=== PATIENT | female | born 1965 | race Caucasian/White ===

== ENCOUNTER 2016-08-20 23:15 | Emergency (ER) | payer BC ==
[2016-08-20 23:55] VITALS: BP 132/111
[2016-08-21 00:21] LABS: Urine Bacteria Absent (Absent)
--- NOTE | 2016-08-21 00:58 | ED ---
Hilton Artis Billy, scribed for Thai Weeks MD on 08/21/16 at 0012 . GI/ HPI - HPI Summary HPI Summary: Patient is a 51 year-old female coming to [facility] for evaluation of burning and stabbing pain in the "vaginal area" for the last 3 days. She has a history of UTI. Pain is worse with urination. Positive fevers and chills. She took OTC AZO without improvement. - History of Current Complaint Chief Complaint: EDUrogenitalProblems Time Seen by Provider: 08/20/16 23:31 Stated Complaint: POSS UTI Hx Obtained From: Patient Onset/Duration: Started Days Ago Timing: Constant Severity: Moderate Current Severity: Moderate Pain Intensity: 9 Additional Location for Females: Vulva Pain Characteristics: Sharp Associated Signs and Symptoms: Positive: Fever, Dysuria, Other: - chills Aggravating Factor(s): Urination Alleviating Factor(s): Nothing - Additional Pertinent History Primary Care Physician: DEVI - Allergy/Home Medications Allergies/Adverse Reactions: Allergies Allergy/AdvReac Type Severity Reaction Status Date / Time Penicillins Allergy Severe Rash Verified 08/20/16 23:53 Aspirin AdvReac Severe Vomiting Verified 08/20/16 23:53 Meperidine [From Demerol HCl] AdvReac Severe Nausea And Verified 08/20/16 23:53 Vomiting Morphine AdvReac Severe Vomiting Verified 08/20/16 23:53 lorbid Allergy Rash Uncoded 08/20/16 23:53 PMH/Surg Hx/FS Hx/Imm Hx Endocrine/Hematology History: Reports: Hx Diabetes Denies: Hx Anticoagulant Therapy, Hx Blood Disorders Cardiovascular History: Reports: Hx Congestive Heart Failure, Hx Hypertension, Other Cardiovascular Problems/Disorders - CHF Dx in 2011-current stable; ectopic atrial tachycardia 2013 - ablation GI History: Reports: Hx Irritable Bowel, Other GI Disorders - IBS - diarrhea Psychiatric History: Reports: Hx Anxiety - Surgical History Surgery Procedure, Year, and Place: cholecystectomy Infectious Disease History: No Infectious Disease History: Denies: Hx Clostridium Difficile, Hx Hepatitis, Hx Human Immunodeficiency Virus (HIV), Hx of Known/Suspected MRSA, Hx Shingles, Hx Tuberculosis, Hx Known/ Suspected VRE, Hx Known/Suspected VRSA, History Other Infectious Disease, Traveled Outside the [place] in Last 30 Days - Family History Known Family History: Positive: Hypertension, Diabetes, Renal Disease, Other - cancer; thyroid dz - Social History Alcohol Use: None Substance Use Type: Reports: None Smoking Status (MU): Never Smoked Tobacco Review of Systems Positive: Fever, Chills Positive: dysuria All Other Systems Reviewed And Are Negative: Yes Physical Exam Triage Information Reviewed: Yes Vital Signs On Initial Exam: Initial Vitals Temp Pulse Resp BP Pulse Ox 98.6 F 95 16 132/111 95 08/20/16 23:49 08/20/16 23:49 08/20/16 23:49 08/20/16 23:49 08/20/16 23:49 Vital Signs Reviewed: Yes Appearance: Positive: No Pain Distress, Obese Skin: Positive: Warm Head/Face: Positive: Normal Head/Face Inspection Eyes: Positive: ARISTEO ENT: Positive: Hearing grossly normal Neck: Positive: Supple Respiratory/Lung Sounds: Positive: Breath Sounds Present Cardiovascular: Positive: RRR Abdomen Description: Positive: Nontender, No Organomegaly, Soft Bowel Sounds: Positive: Present Pelvic Exam: Positive: speculum exam normal, no masses, discharge - mild white. Negative: blood, tender adnexa Musculoskeletal: Positive: Strength/ROM Intact Neurological: Positive: Alert, Oriented to Person Place, Time - Jayce Coma Scale Coma Scale Total: 15 Diagnostics - Vital Signs Vital Signs Temp Pulse Resp BP Pulse Ox 08/20/16 23:49 98.6 F 95 16 132/111 95 - Laboratory Lab Results: Lab Results 08/20/16 Range/Units 23:55 Urine Color [facility] Urine Appearance Clear Urine pH Pending Ur Specific [place] 1.035 H (1.010-1.030) Urine Protein Pending Urine Ketones Pending Urine Blood Pending Urine Nitrate Pending Urine Bilirubin Pending Urine Urobilinogen Pending Ur Leukocyte Esterase Pending Urine Glucose Pending Urine Ascorbic Acid Pending Lab Statement: Any lab studies that have been ordered have been reviewed, and results considered in the medical decision making process. GIGU Course/Dx - Diagnoses Provider Diagnoses: Vaginitis Discharge - Discharge Plan Condition: Stable Disposition: HOME Prescriptions: Miconazole VAG.SUPP* [Monistat7*] 100 mg VAGINAL BEDTIME #7 vag.supp Patient Education Materials: Vaginitis (ED) Referrals: Konstantin Gilmore MD [Primary Care Provider] - Additional Instructions: TAKE MEDICATIONS DIRECTED. FOLLOW UP WITH YOUR VIDEO ENGINEER. The documentation as recorded by the Hilton morganKraig accurately reflects the service I personally performed and the decisions made by me, Thai Weeks MD.
== END 2016-08-21 01:05 | disposition home or self-care (01) ==
LOC: ED 23:15
DX: N76.0 Acute vaginitis (principal); E11.9 Type 2 diabetes mellitus without complications; Z88.0 Allergy status to penicillin; Z88.5 Allergy status to narcotic agent; Z88.6 Allergy status to analgesic agent; I50.9 Heart failure, unspecified; I10 Essential (primary) hypertension
CPT/HCPCS: 81003; 81015; 87480; 87491; 87510; 87591; 87661; 99282

== ENCOUNTER 2017-01-26 08:05 | Emergency (ER) | payer BC ==
[2017-01-26] MEDS ORDERED: NS 0.9% 1000 ML* 1,000 ML IV ONE (08:09)
[2017-01-26] MEDS ORDERED: Ondansetron INJ* 2 MG/ML VIAL IV ONE (08:09)
[2017-01-26 09:04] LABS: Hematocrit 45 % (35-47); Hemoglobin 15.8 g/dl (12.0-16.0); Mean Corpuscular HGB Conc 35 g/dl (31-36); Mean Corpuscular Hemoglobin 30 pg (27-31); Mean Corpuscular Volume 86 fL (80-97); Mean Platelet Volume 9 um3 (7.4-10.4); Red Blood Count 5.26 10^6/ul (4.0-5.4); Red Cell Distribution Width 13 % (10.5-15); White Blood Count 7.1 10^3/ul (3.5-10.8)
--- NOTE | 2017-01-26 09:25 | RAD ---
Indication: Diarrhea and vomiting for 2 days. Comparison: December 17, 2015 chest radiograph. October 25, 2006 CT abdomen. Technique: Supine and upright views of the abdomen. Report: Mild elevation of the RIGHT hemidiaphragm without change. No radiographic evidence for free air. Unremarkable bowel gas pattern. Small volume of stool in the colon without significant rectal distension. Negative for suspicious calcifications. Pelvic phleboliths noted. Unremarkable soft tissue contours. IMPRESSION: No acute abdominal pelvic pathology evident.
[2017-01-26 09:29] LABS: Albumin 4.4 g/dL (3.2-5.2); BUN/Creatinine Ratio 19.8 (8-20); C Reactive Protein 13.36 mg/L (< 5.00); Calcium 9.5 mg/dL (8.6-10.3); EGFR African American 89.1 (>60); EGFR Non-African American 69.3 (>60); Globulin 3.2 g/dL (2-4); Magnesium 1.6 mg/dL (1.9-2.7); Potassium 3.7 mmol/L (3.5-5.0); Total Bilirubin 0.7 mg/dL (0.2-1.0); Total Protein 7.6 g/dL (6.4-8.9)
[2017-01-26 11:58] VITALS: BP 91/63
--- NOTE | 2017-01-26 17:23 | ED ---
Jani Artis Angela, scribed for Chandra Parmar MD on 01/26/17 at 0823 . Complex/Multi-Sys Presentation - HPI Summary HPI Summary: This pt is a 51 y/o female presenting [facility] c/o diarrhea and vomiting since yesterday. She also c/o some abd cramping. She denies recent antibiotics or recent long travel. 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 Pt notes she has irritable bowel but this is something that she is not used to. She denies chest pain, SOB, fever, chills, LE swelling or pain. PMHx: CHF, tachycardia, diabetes. - History Of Current Complaint Chief Complaint: EDNauseaVomitDiarrh Hx Obtained From: Patient Onset/Duration: Lasting Days - 2, Still Present Timing: Days - 2 Severity Currently: Mild Severity Initially: Mild Location: Pain At: - abd cramping Associated Signs And Symptoms: Positive: Nausea, Vomiting, Diarrhea, Other - abdominal cramping. Negative: SOB, Chest Pain, Edema, Back Pain, Fever - Allergies/Home Medications Allergies/Adverse Reactions: Allergies Allergy/AdvReac Type Severity Reaction Status Date / Time Penicillins Allergy Severe Rash Verified 08/20/16 23:53 Aspirin AdvReac Severe Vomiting Verified 08/20/16 23:53 Meperidine [From Demerol HCl] AdvReac Severe Nausea And Verified 08/20/16 23:53 Vomiting Morphine AdvReac Severe Vomiting Verified 08/20/16 23:53 lorbid Allergy Rash Uncoded 08/20/16 23:53 PMH/Surg Hx/FS Hx/Imm Hx Endocrine/Hematology History: Reports: Hx Diabetes Denies: Hx Anticoagulant Therapy, Hx Blood Disorders Cardiovascular History: Reports: Hx Congestive Heart Failure, Hx Hypertension, Other Cardiovascular Problems/Disorders - CHF Dx in 2011-current stable; ectopic atrial tachycardia 2013 - ablation GI History: Reports: Hx Irritable Bowel, Other GI Disorders - IBS - diarrhea Psychiatric History: Reports: Hx Anxiety - Surgical History Surgery Procedure, Year, and Place: cholecystectomy Infectious Disease History: No Infectious Disease History: Denies: Hx Clostridium Difficile, Hx Hepatitis, Hx Human Immunodeficiency Virus (HIV), Hx of Known/Suspected MRSA, Hx Shingles, Hx Tuberculosis, Hx Known/ Suspected VRE, Hx Known/Suspected VRSA, History Other Infectious Disease, Traveled Outside the [place] in Last 30 Days - Family History Known Family History: Positive: Hypertension, Diabetes, Renal Disease, Other - cancer; thyroid dz - Social History Alcohol Use: None Substance Use Type: Reports: None Smoking Status (MU): Never Smoked Tobacco Review of Systems Negative: Fever, Chills Eyes: Negative ENT: Negative Negative: Chest Pain Negative: Shortness Of Breath Positive: Vomiting, Diarrhea, Nausea, Other - abd cramping Genitourinary: Negative Musculoskeletal: Negative Negative: Edema, Other - LE pain All Other Systems Reviewed And Are Negative: Yes Physical Exam - Summary Physical Exam Summary: VITAL SIGNS: Reviewed. GENERAL: Patient is a well-developed and nourished female who is lying comfortable in the stretcher. Patient is not in any acute respiratory distress. HEAD AND FACE: No signs of trauma. No ecchymosis, hematomas or skull depressions. No sinus tenderness. EYES: PERRLA, EOMI x 2, No injected conjunctiva, no nystagmus. EARS: Hearing grossly intact. Ear canals and tympanic membranes are within normal limits. MOUTH: Oropharynx within normal limits. NECK: Supple, trachea is midline, no adenopathy, no JVD, no carotid bruit, no c- spine tenderness, neck with full ROM. CHEST: Symmetric, no tenderness at palpation LUNGS: Clear to auscultation bilaterally. No wheezing or crackles. CVS: Regular rate and rhythm, S1 and S2 present, no murmurs or gallops appreciated. ABDOMEN: Soft, non-tender. No signs of distention. No rebound no guarding, and no masses palpated. Bowel sounds are normal. EXTREMITIES: FROM in all major joints, no edema, no cyanosis or clubbing. NEURO: Alert and oriented x 3. No acute neurological deficits. Speech is normal and follows commands. SKIN: Dry and warm Triage Information Reviewed: Yes Vital Signs On Initial Exam: Initial Vitals Temp Pulse Resp BP Pulse Ox 97.5 F 100 17 122/84 98 01/26/17 08:05 01/26/17 08:05 01/26/17 08:05 01/26/17 08:05 01/26/17 08:05 Vital Signs Reviewed: Yes Diagnostics - Vital Signs Vital Signs Temp Pulse Resp BP Pulse Ox 01/26/17 08:05 97.5 F 100 17 122/84 98 - Laboratory Lab Results: Lab Results 01/26/17 01/26/17 Range/Units 08:45 08:45 WBC 7.1 (3.5-10.8) 10^3/ul RBC 5.26 (4.0-5.4) 10^6/ul Hgb 15.8 (12.0-16.0) g/dl Hct 45 (35-47) % MCV 86 (80-97) fL MCH 30 (27-31) pg MCHC 35 (31-36) g/dl RDW 13 (10.5-15) % Plt Count 196 (150-450) 10^3/ul MPV 9 (7.4-10.4) um3 Neut % (Auto) 58.1 (38-83) % Lymph % (Auto) 29.0 (25-47) % [place] % (Auto) 10.3 H (1-9) % Eos % (Auto) 2.1 (0-6) % Baso % (Auto) 0.5 (0-2) % Absolute Neuts (auto) 4.1 (1.5-7.7) 10^3/ul Absolute Lymphs (auto) 2.1 (1.0-4.8) 10^3/ul Absolute Monos (auto) 0.7 (0-0.8) 10^3/ul Absolute Eos (auto) 0.1 (0-0.6) 10^3/ul Absolute Basos (auto) 0 (0-0.2) 10^3/ul Absolute Nucleated RBC 0.01 10^3/ul Nucleated RBC % 0.2 Sodium 133 (133-145) mmol/L Potassium 3.7 (3.5-5.0) mmol/L Chloride 99 L (101-111) mmol/L Carbon Dioxide 22 (22-32) mmol/L Anion Gap 12 H (2-11) mmol/L BUN 17 (6-24) mg/dL Creatinine 0.86 (0.51-0.95) mg/dL Est GFR ( Amer) 89.1 (>60) Est GFR (Non-Af Amer) 69.3 (>60) BUN/Creatinine Ratio 19.8 (8-20) Glucose 239 H (70-100) mg/dL Calcium 9.5 (8.6-10.3) mg/dL Magnesium 1.6 L (1.9-2.7) mg/dL Total Bilirubin 0.70 (0.2-1.0) mg/dL AST 29 (13-39) U/L ALT 41 (7-52) U/L Alkaline Phosphatase 80 (34-104) U/L C-Reactive Protein 13.36 H (< 5.00) mg/L Total Protein 7.6 (6.4-8.9) g/dL Albumin 4.4 (3.2-5.2) g/dL Globulin 3.2 (2-4) g/dL Albumin/Globulin Ratio 1.4 (1-3) Lipase 29 (11.0-82.0) U/L Result Diagrams: 01/26/17 08:45 01/26/17 08:45 Lab Statement: Any lab studies that have been ordered have been reviewed, and results considered in the medical decision making process. - Radiology Abdomen XR Xray Interpretation: No Acute Changes - IMPRESSION: No acute abdominal pelvic pathology evident. ED physician has reviewed this radiology report and agrees. Radiology Interpretation Completed By: Radiologist Laisha Multi-Symp Course/Dx Assessment/Plan: This pt is a 51 y/o female presenting to [facility] c/o diarrhea and vomiting since yesterday. She also c/o some abd cramping. She denies recent antibiotics or recent long travel. 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 Pt notes she has irritable bowel but this is something that she is not used to. She denies chest pain, SOB, fever, chills, LE swelling or pain. PMHx: CHF, tachycardia, diabetes. Test results without any significant abnormalities except for glucose of 239, CRP of 13.36. In the ED course, the pt was given IV fluids, Zofran for nausea and vomiting. At this point her symptoms have subsided. Pt is tolerating PO without nausea and vomiting. The pt was observed for a couple of hours in the ED and was not able to produce stool. Therefore, since all symptoms have improved, the pt will be discharged home with follow up from PCP. Pt is hemodynamically stable, alert and oriented x3. - Diagnoses Provider Diagnoses: Nausea vomiting and diarrhea Discharge - Discharge Plan Condition: Stable Disposition: HOME Patient Education Materials: Acute Nausea and Vomiting (ED), Acute Diarrhea (ED ) Referrals: Konstantin Gilmore MD [Primary Care Provider] - Additional Instructions: Please follow up with your primary care provider. The documentation as recorded by the Jani morgan Angela accurately reflects the service I personally performed and the decisions made by me, Chandra Parmar MD.
== END 2017-01-26 12:10 | disposition home or self-care (01) ==
LOC: ED 08:05
DX: R11.2 Nausea with vomiting, unspecified (principal); R19.7 Diarrhea, unspecified; R10.9 Unspecified abdominal pain
CPT/HCPCS: 36415; 74020; 80053; 83690; 83735; 85025; 86140; 99282; J2405

== ENCOUNTER 2017-02-06 15:30 | Emergency (ER) | payer SELFPAY ==
[2017-02-06] MEDS ORDERED: HYDROmorphone INJ* 1 MG/ML CARPUJECT SYRINGE IV ONE (15:50)
[2017-02-06] MEDS ORDERED: Ondansetron INJ* 2 MG/ML VIAL IV ONE (15:50)
[2017-02-06] MEDS ORDERED: NS 0.9% 1000 ML* 1,000 ML IV SCH (16:00)
--- NOTE | 2017-02-06 16:52 | RAD ---
HISTORY: Trauma, headache COMPARISONS: None TECHNIQUE: Multiple contiguous axial CT scans were obtained of the head without intravenous contrast. FINDINGS: HEMORRHAGE/INFARCT: There is no hemorrhage or acute infarct. MASSES/SHIFT: There is no mass or shift. EXTRA-AXIAL SPACES: There are no extra-axial fluid collections. SULCI AND VENTRICLES: The sulci and ventricles are normal in size and position for the patient's stated age. CEREBRUM: There are no focal parenchymal abnormalities. BRAINSTEM: There are no focal parenchymal abnormalities. CEREBELLUM: There are no focal parenchymal abnormalities. VESSELS: The vessels are grossly normal. PARANASAL SINUSES: The paranasal sinuses are clear. ORBITS: The orbits are unremarkable. BONES AND SOFT TISSUE: No bone or soft tissue abnormalities are noted. OTHER: None IMPRESSION: NO ACUTE INTRACRANIAL PATHOLOGY.
--- NOTE | 2017-02-06 16:53 | RAD ---
HISTORY: Trauma, right arm pain COMPARISONS: None TECHNIQUE: Multiple contiguous axial CT scans were obtained of the cervical spine without intravenous contrast, with coronal and sagittal multiplanar reformations. FINDINGS: BRAIN: The visualized brain is unremarkable CENTRAL CANAL: Evaluation of the central canal is limited on CT technique, however there is no obvious canalicular mass or epidural hemorrhage. ALIGNMENT: The alignment is normal, without subluxation or dislocation. VERTEBRAL BODIES: The odontoid process is intact. The atlantoaxial intervals are symmetric. The vertebral bodies are normal in attenuation, without fracture. There is minimal anterolateral marginal osteophyte formation. JOINTS: There is no subluxation or dislocation MUSCULATURE: Normal INTERVERTEBRAL DISCS: The intervertebral disc spaces are relatively preserved in height. AXIAL IMAGES: On axial images, there is no osseous neural foraminal narrowing or central canal stenosis. SOFT TISSUES: The visualized soft tissues of the neck are unremarkable. The prevertebral fat stripe is preserved. OTHER: None. IMPRESSION: NO ACUTE OSSEOUS INJURY TO THE CERVICAL SPINE
--- NOTE | 2017-02-06 16:54 | RAD ---
HISTORY: Fall, trauma, headache, right arm pain COMPARISONS: None TECHNIQUE: Multiple contiguous axial CT scans were obtained of the face without intravenous contrast, with coronal and sagittal multiplanar reformations. FINDINGS: BONES: There is no displaced fracture or dislocation. The orbital rim is intact. The zygomatic arch is intact. The pterygoid plates are intact. ORBITS: The globes are round. The optic nerves are symmetric. The extraocular musculature is normal. There is no post septal or intraconal inflammatory change. There is no retrobulbar hematoma. PARANASAL SINUSES: The paranasal sinuses are clear. BRAIN AND SOFT TISSUE: Unremarkable. OTHER: None. IMPRESSION: NO FACIAL FRACTURE
--- NOTE | 2017-02-06 17:15 | RAD ---
HISTORY: Left knee pain, fall COMPARISONS: None VIEWS: 4, Frontal, lateral, axial, and oblique views of the left knee FINDINGS: BONE DENSITY: Normal. BONES: There is no displaced fracture. JOINTS: There is mild tricompartmental osteoarthritis. There is no suprapatellar joint effusion or lipohemarthrosis. ALIGNMENT: There is no dislocation. SOFT TISSUES: Unremarkable. OTHER FINDINGS: None. IMPRESSION: NO ACUTE OSSEOUS INJURY. IF SYMPTOMS PERSIST, RECOMMEND REPEAT IMAGING.
--- NOTE | 2017-02-06 17:16 | RAD ---
HISTORY: Fall, right arm pain COMPARISONS: August 02, 2004 VIEWS: 4, Frontal internal rotation, external rotation, outlet, and axillary views of the right shoulder FINDINGS: BONE DENSITY: Normal. BONES: There is no displaced fracture. JOINTS: There is no arthropathy. ALIGNMENT: There is superior displacement of the clavicle with respect to the acromion with widening of the coracoclavicular interval SOFT TISSUES: Unremarkable. OTHER FINDINGS: None. IMPRESSION: FINDINGS SUGGESTIVE OF A.C. AND CORACOCLAVICULAR LIGAMENTOUS INJURY. NO ACUTE OSSEOUS INJURY.
[2017-02-06] MEDS ORDERED: oxyCODONE/Acetamin 5/325 MG* TAB PO ONE (17:36)
--- NOTE | 2017-02-06 18:10 | ED ---
Upper Extremity Pain - HPI Summary HPI Summary: 51F presents with right shoulder pain, left knee pain and headache. She tripped on her shoes and fell down a flight of stairs. no LOC. is not on blood thinners. no nausea or vomiting. has severe pain in head. has swelling to anterior shoulder with limited ROM. is not able to put much weight onto leg. pain is 10/10. no previous fracture to area. denies any previous injury to area. no lightheadedness or visual changes. - History of Current Complaint Chief Complaint: EDExtremityUpper Stated Complaint: FALL Time Seen by Provider: 02/06/17 17:09 - Allergies/Home Medications Allergies/Adverse Reactions: Allergies Allergy/AdvReac Type Severity Reaction Status Date / Time Penicillins Allergy Severe Rash Verified 08/20/16 23:53 Aspirin AdvReac Severe Vomiting Verified 08/20/16 23:53 Meperidine [From Demerol HCl] AdvReac Severe Nausea And Verified 08/20/16 23:53 Vomiting Morphine AdvReac Severe Vomiting Verified 08/20/16 23:53 lorbid Allergy Rash Uncoded 08/20/16 23:53 PMH/Surg Hx/FS Hx/Imm Hx Endocrine/Hematology History: Reports: Hx Diabetes Denies: Hx Anticoagulant Therapy, Hx Blood Disorders Cardiovascular History: Reports: Hx Congestive Heart Failure, Hx Hypertension, Other Cardiovascular Problems/Disorders - CHF Dx in 2011-current stable; ectopic atrial tachycardia 2013 - ablation GI History: Reports: Hx Irritable Bowel, Other GI Disorders - IBS - diarrhea Psychiatric History: Reports: Hx Anxiety - Surgical History Surgery Procedure, Year, and Place: cholecystectomy Infectious Disease History: No Infectious Disease History: Denies: Hx Clostridium Difficile, Hx Hepatitis, Hx Human Immunodeficiency Virus (HIV), Hx of Known/Suspected MRSA, Hx Shingles, Hx Tuberculosis, Hx Known/ Suspected VRE, Hx Known/Suspected VRSA, History Other Infectious Disease, Traveled Outside the [place] in Last 30 Days - Family History Known Family History: Positive: Hypertension, Diabetes, Renal Disease, Other - cancer; thyroid dz - Social History Alcohol Use: None Substance Use Type: Reports: None Smoking Status (MU): Never Smoked Tobacco Review of Systems Negative: Fever Negative: Chest Pain Negative: Shortness Of Breath Positive: Myalgia - left knee, right shoulder Positive: Headache All Other Systems Reviewed And Are Negative: Yes Physical Exam Triage Information Reviewed: Yes Vital Signs On Initial Exam: Initial Vitals Temp Pulse Resp BP Pulse Ox 98.4 F 82 18 141/88 99 02/06/17 15:38 02/06/17 15:38 02/06/17 15:38 02/06/17 15:38 02/06/17 15:38 Vital Signs Reviewed: Yes Appearance: Positive: Well-Appearing Skin: Positive: Warm, Dry Head/Face: Positive: Normal Head/Face Inspection, Other - no step off, raccoon eyes, bray sign Eyes: Positive: Normal, EOMI, ARISTEO, Conjunctiva Clear ENT: Positive: Normal ENT inspection, Pharynx normal, TMs normal Respiratory/Lung Sounds: Positive: Clear to Auscultation, Breath Sounds Present Cardiovascular: Positive: Normal, RRR Abdomen Description: Positive: Nontender, Soft Bowel Sounds: Positive: Present Musculoskeletal: Positive: Strength/ROM Intact - left knee with pain, Limited @ - right shoulder, Other - tenderness over right shoulder with edema there, minimially edema of left knee, good pulses, good director skills strength Neurological: Positive: Sensory/Motor Intact, Alert, Oriented to Person Place, Time, CN Intact II-III - Jayce Coma Scale Best Eye Response: 4 - Spontaneous Best Motor Response: 5 - Purposeful Movement Best Verbal Response: 5 - Oriented Coma Scale Total: 15 Diagnostics - Vital Signs Vital Signs Temp Pulse Resp BP Pulse Ox 02/06/17 17:45 18 02/06/17 16:15 18 97 02/06/17 16:00 128/67 02/06/17 15:39 84 11 100 02/06/17 15:38 98.4 F 82 18 141/88 99 02/06/17 15:37 141/88 - Laboratory Lab Statement: Any lab studies that have been ordered have been reviewed, and results considered in the medical decision making process. - Radiology shoulder Xray Interpretation: Positive (See Comments) - IMPRESSION: FINDINGS SUGGESTIVE OF A.C. AND CORACOCLAVICULAR LIGAMENTOUS INJURY. NO ACUTE OSSEOUS INJURY. Radiology Interpretation Completed By: Radiologist knee Xray Interpretation: No Acute Changes Radiology Interpretation Completed By: Radiologist - CT head, neck, maxillaryfacial CT Interpretation: No Acute Changes CT Interpretation Completed By: Radiologist Course/Dx - Course Course Of Treatment: 51F presents with right shoulder pain, left knee pain and headache. She tripped on her shoes and fell down a flight of stairs. no LOC. is not on blood thinners. no nausea or vomiting. has severe pain in head. has swelling to anterior shoulder with limited ROM. is not able to put much weight onto leg. pain is 10/10. no previous fracture to area. denies any previous injury to area. no lightheadedness or visual changes. on exam normal neuro exam. tender over anterior shoulder with. unable to move arm without extreme pain. has swelling to left anterior knee. gave dose of dilaudid and did not touch pain. CT brain normal. xray ac separation. knee left normal. discussed with dr paulson. gave sling and follow up with ortho. gave larger amount of pain medication as was unable to get pain control very well in ED. patient understand and agrees with plan. - Diagnoses Differential Diagnosis/HQI/PQRI: Positive: Fracture (Closed), Strain, Sprain Provider Diagnoses: Head injury, Separation of AC joint, Left knee pain, Fall down stairs Discharge - Discharge Plan Condition: Good Disposition: HOME Prescriptions: Ondansetron TAB* [Zofran 4 MG Tab*] 4 mg PO Q6H PRN #15 tab PRN Reason: Nausea oxyCODONE/Acetamin 5/325 MG* [Percocet 5/325 TAB*] 1 - 2 tab PO Q4H PRN #30 tab MDD 8 PRN Reason: Pain - Severe Patient Education Materials: Acromioclavicular Separation (ED), Head Injury (ED ) Referrals: Konstantin Gilmore MD [Primary Care Provider] - Abdirahman Harris MD [Medical Doctor] - Additional Instructions: Keep in sling Take Tylenol every 6 hours as needed for pain, use narcotic for break through pain Can use zofran every 6 hours for any nausea Ice/heat Follow up with ortho Return to ED if develop any new or worsening symptoms
[2017-02-06] MEDS ORDERED: HYDROmorphone INJ* 2 MG/ML CARPUJECT SYRINGE IV SLOW PU ONE (18:19)
[2017-02-06 18:54] VITALS: BP 106/61
== END 2017-02-06 18:53 | disposition home or self-care (01) ==
LOC: ED 15:30
DX: S09.90XA Unspecified injury of head, initial encounter (principal); S43.101A Unspecified dislocation of right acromioclavicular joint, initial encounter; W10.9XXA Fall (on) (from) unspecified stairs and steps, initial encounter; Y93.9 Activity, unspecified; Y92.9 Unspecified place or not applicable; M25.562 Pain in left knee; E11.9 Type 2 diabetes mellitus without complications; I50.9 Heart failure, unspecified; I10 Essential (primary) hypertension; F41.9 Anxiety disorder, unspecified; Z90.49 Acquired absence of other specified parts of digestive tract; Z88.6 Allergy status to analgesic agent; Z88.5 Allergy status to narcotic agent; Z88.0 Allergy status to penicillin
CPT/HCPCS: 70450; 70486; 72125; 96361; 96374; 96375; 96376; 99282; A9270-GY; J1170; J2405

== ENCOUNTER 2017-08-09 06:15 | Day surgery (SDC) | payer OTHER ==
--- NOTE | 2017-07-21 15:38 | HP ---
PREOPERATIVE HISTORY AND PHYSICAL: DATE OF ADMISSION/SURGERY: 08/02/17 DATE OF OFFICE VISIT: 07/21/17 ATTENDING SURGEON: Shruthi Martines MD * (DICTATED BY YAJAIRA KLINE) PROCEDURE: Left knee arthroscopy, partial meniscectomy. CHIEF COMPLAINT: Left knee. HISTORY OF PRESENT ILLNESS: Camryn is a 52-year-old female who presents to clinic for left knee pain due to a work-related injury that caused a medial meniscus tear and MCL injury. She has failed conservative measures and is therefore agreed to undergo a left knee arthroscopy, partial meniscectomy with Dr. Martines on 08/02/17. The patient also states that she has developed upper back and neck pain over the past few months that gets worse when her shoulder pain is worse. She did not have neck pain prior to the shoulder injury. It is on the right side of her spine in the muscles. She has tried heat and motion without relief. She denies numbness or tingling in the hand. PAST MEDICAL HISTORY: Hypertension, heart disease, hyperlipidemia, diabetes type 2, depression, anxiety, congestive heart failure, arrhythmia, IBS, and thyroid disorder. PAST SURGICAL HISTORY: Tubal ligation, tonsillectomy, cholecystectomy, and heart ablation x2. The patient denies prior complications with anesthesia. MEDICATIONS: 1. Vitamin D 1000 units 2 by mouth every day. 2. Methimazole 5 mg 1 by mouth every day. 3. Vitamin E 400 units 1 by mouth every day. 4. Metoprolol succinate ER 100 mg 1 by mouth every day. 5. Atorvastatin calcium 10 mg 1 by mouth every day. 6. Glimepiride 2 mg 1 by mouth every day. 7. Lisinopril 10 mg 1 by mouth every day. 8. Vitamin B12 1000 mg 1 by mouth every day. 9. Tolterodine tartrate ER 2 mg 1 by mouth every day. 10. Duloxetine HCl 60 mg 1 by mouth every day. 11. Levocetirizine dihydrochloride 5 mg 1 by mouth every day. 12. Vitamin C 1000 mg 1 by mouth daily. 13. Propranolol HCl 80 mg 1 by mouth every day. 14. Lantus 100 units per mL 15 units subcu daily as directed. 15. She is also taking Nucynta 50 mg 1 by mouth 3 times a day as needed for pain. 16. Victoza 0.6 mg at night. ALLERGIES: DEMEROL, ASPIRIN, PENICILLIN, MORPHINE. FAMILY HISTORY: Positive for diabetes, heart disease, hypertension, stroke, cancer, rheumatoid arthritis, thyroid disease, and maternal grandmother with pulmonary embolism. SOCIAL HISTORY: She denies tobacco use, alcohol use, or illegal drug use. REVIEW OF SYSTEMS: A 14-point review of systems was reviewed with the patient, positive for current complaint and neck pain, otherwise negative. Denies chest pain, shortness of breath, fever, chills, numbness, tingling, history of DVT or PE, history of bleeding disorder. PHYSICAL EXAMINATION GENERAL: A 52-year-old well-developed, well-nourished female, in no acute distress. Alert and oriented x3. Appropriate mood and affect. Appropriate balance and coordination of the upper extremities. VITAL SIGNS: Height 64, weight 191, blood pressure 114/64, respiratory rate 18 , BMI 32.8. HEENT: Normocephalic, atraumatic, PERRLA. Throat clear. NECK: Supple. There is palpation of the paraspinal muscles, nontender over the spinal processes. Stiffness to range of motion of the neck was obtained. PULMONARY: Lungs clear to auscultation bilaterally. No wheezing, rhonchi, or rales. CARDIO: Regular rate and rhythm, S1, S2. No murmurs, gallops, or rubs. No edema. ABDOMEN: Positive bowel sounds. Soft, nontender. NEUROLOGICAL: Alert and oriented x3. Cranial nerves grossly intact. Sensation intact to light touch. MUSCULOSKELETAL: Left lower extremity skin is intact. No warmth or erythema. Mild effusion, tenderness over the medial joint line. Extension 0 with pain, flexion 125. Stable with varus and valgus stress. Calves soft, nontender, +2 PT pulse, sensation intact to light touch distally. STUDIES: MRI of the left knee revealed horizontal tear of the posterior horn of the medial meniscus. IMPRESSION: Left knee medial meniscus tear. PLAN: The patient is scheduled to undergo a left knee arthroscopy with partial meniscectomy with Dr. Martines on 08/02/17. She has been cleared by her PCP and Endocrinology. Her surgery is pending cardiac clearance. She is patient of a Pain Clinic, therefore we will consult the Pain Clinic on postop pain management. In regards to her neck pain, it started after the shoulder pain and shoulder pain cannot often aggravate the neck. So, her pain in her neck and upper back is due to the Workers' Comp injury. She will follow up with Dr. Martines 2 weeks after surgery for knee followup and suture removal. YAJAIRA KLINE [id number]/[facility] #: [id number] DAREK
[~2017-08-09 06:15] MED LIST: Buffered Lidocaine 0.9% SYRIN* 5 ML/SYR SYRINGE INTRADERM ONE
[2017-08-09] MEDS ORDERED: Clindamycin 900 MG IVPREMIX(* 900 MG/50 ML SDV IV ONE (06:20)
[2017-08-09] MEDS ORDERED: Bupivacaine 0.5%* 50 ML VIAL ONE (07:06)
[2017-08-09] MEDS ORDERED: Bupivacaine 0.25% SDV* 30 ML ONE (07:08)
[2017-08-09] MEDS ORDERED: Lidocaine 1% MPF wEPI 200,000* 30 ML SDV ONE (07:08)
[2017-08-09] MEDS ORDERED: Midazolam* 1 MG/ML 5 ML VIAL (5 MG) ONE (07:24)
[2017-08-09] MEDS ORDERED: Propofol* 10 MG/ML 20 ML BTL IV PUSH ONE (07:24)
[2017-08-09] MEDS ORDERED: fentaNYL* 50 MCG/ML 2 ML VIAL (100 MCG VIAL) ONE (07:24)
[2017-08-09] MEDS ORDERED: Dexamethasone IV* 4 MG/ML 1 ML (4 MG) ONE (07:52)
[2017-08-09] MEDS ORDERED: Ondansetron INJ* 2 MG/ML VIAL ONE ×2 (08:06→08:46)
[2017-08-09] MEDS ORDERED: Ketorolac INJ* 30 MG/ML 1 ML VIAL ONE (08:06)
[2017-08-09] MEDS ORDERED: HYDROcodone/ACETAMIN 5-325 MG* 1 TAB PO PRN (08:18)
[2017-08-09] MEDS ORDERED: Ondansetron INJ* 2 MG/ML VIAL IV PRN (08:18)
[2017-08-09] MEDS ORDERED: oxyCODONE/Acetamin 5/325 MG* TAB PO PRN (08:18)
[2017-08-09] MEDS ORDERED: fentaNYL* 50 MCG/ML 2 ML VIAL (100 MCG VIAL) IV PRN (08:18)
[2017-08-09] MEDS ORDERED: Naloxone* 0.4 MG/ML 1 ML VIAL IV PRN (08:18)
[2017-08-09] MEDS ORDERED: oxyCODONE/Acetamin 5/325 MG* TAB ONE (09:50)
[2017-08-09 11:15] VITALS: BP 125/81
--- NOTE | 2017-08-10 11:18 | OP ---
DATE OF OPERATION: 08/09/17 - [facility] DATE OF : 63 SURGEON: Shruthi Martines MD [employer]: None available. ANESTHESIOLOGIST: Dr. Turner. ANESTHESIA: General. PRE-OP DIAGNOSIS: Left knee medial meniscus tear with mild osteoarthritis. POST-OP DIAGNOSIS: Left knee medial meniscus tear with mild osteoarthritis. OPERATIVE PROCEDURE: Left knee arthroscopy with partial medial and partial lateral meniscectomy. Chondroplasty of the medial femoral condyle and patellofemoral joint and synovectomy anteriorly. COMPLICATIONS: None. ESTIMATED BLOOD LOSS: Minimal. INDICATIONS: Camryn Dubon is a 52-year-old female who had sustained a work-related injury on 02/06/14. She has had persistent pain and has failed conservative management and has elected to proceed with surgical treatment. She underwent preoperative risk assessment and evaluation by her primary care doctor and another doctor and is cleared for surgical treatment. Risks and benefits were discussed at length and included, but not limited to bleeding, infection, damage to nerves, vessels, surrounding structures, wound nonhealing, persistent pain, need for further surgery, scarring, stiffness, incomplete relief of symptoms, risks of anesthesia. DESCRIPTION OF PROCEDURE: The patient was greeted in the preoperative area by the attending surgeon. Correct extremity was marked and the consent was confirmed. The patient was then brought back to the operating suite. She was placed in supine position on operating table. She underwent general anesthesia , endotracheal intubation after which she was placed in supine position on the operating table. An unsterile tourniquet was placed high on the proximal thigh. The lateral post was positioned. The patient did have abrasions to her knee that had been treated conservatively. We waited until these had healed. There was a small eschar, but it has completely healed underneath, this was removed. The left leg was prepped and draped in usual sterile fashion beginning with chlorhexidine soap, scrub, and alcohol wipe and a final prep with ChloraPrep. An Ioban dressing was placed along the anterior aspect of the knee for an extra seal. After appropriate surgical pause indicating site, side, procedure and administration of antibiotics, the standard diane-lateral portal was made sharply with an 11-blade. The scope was introduced into the joint. The portal was avoided in any area of the healed abrasion. The patellofemoral joint had some chondral wear, grade 2 changes with unstable flaps. The trochlea had grade 2 changes as well. The medial and lateral gutters were intact without any loose debris. There was abundant synovitis throughout the anterior and medial aspect of the knee. The scope was brought down to the notch. There no ligamentum was present. The ACL and PCL were intact. The anteromedial protal was made using 18-gauge needle for localization. Shaver was used to debride this back and the ACL and PCL were found to be intact. The scope was brought to the medial compartment. There were grade 2 changes in the area along the weightbearing surface of the medial joint that had grade 4 changes, even underneath meniscus that was intact and this was on the far medial aspect of the meniscus. There was evidence of grade 2 and 3 changes throughout the rest of the condyle. There was evidence of a medial meniscus tear posteriorly. ____ __. The medial meniscus was debrided back with jone. The knee was placed in [id number] position and the lateral compartment was examined. There were grade 0 to 1 change of the lateral femoral condyle and the lateral plateau had grade 1 to 2 changes. A shaver was used to debride the mild fraying of the lateral meniscus back to stable. The knee was placed in extension and a small chondroplasty of the patellofemoral joint was done there. There was abundant synovitis that was removed using shaver and electrocautery device. Hemostasis was obtained using electrocautery device. The wounds were then copiously irrigated. The final images were obtained. The portal were closed with 3-0 nylon after they were thoroughly irrigated. Sterile dressing were applied and the knee was intra-articularly injected with 0.25% Marcaine plain. A Cryo/Cuff was placed. She was awoken from anesthesia and transferred to PACU in stable condition. POSTOPERATIVE PLAN: She will be weightbearing as tolerated with the crutches for the first 3 to 5 days. She will be discharged on pain medications. She will start physical therapy after her visit in the office. She will be discharged on pain medication. I will see the patient back in 10 to 14 days. [id number]/[facility] #: [id number] MTDD
== END 2017-08-09 11:27 | disposition home or self-care (01) ==
LOC: OR 06:15
PROVIDERS: ATTEND Orthopaedic Surgery
DX: S83.242A Other tear of medial meniscus, current injury, left knee, initial encounter (principal); M17.12 Unilateral primary osteoarthritis, left knee; M65.862 Other synovitis and tenosynovitis, left lower leg; I10 Essential (primary) hypertension; E78.5 Hyperlipidemia, unspecified; E11.8 Type 2 diabetes mellitus with unspecified complications; Z79.4 Long term (current) use of insulin; F41.8 Other specified anxiety disorders; I50.9 Heart failure, unspecified; X58.XXXA Exposure to other specified factors, initial encounter; Y92.89 Other specified places as the place of occurrence of the external cause; Y99.0 Civilian activity done for income or pay
CPT/HCPCS: A9270-GY; J1100; J1885; J2001; J2250; J2405; J2704; J3010

== ENCOUNTER 2018-03-13 07:30 | Inpatient (IN) | payer OTHER ==
--- NOTE | 2018-04-24 12:50 | HP ---
HISTORY AND PHYSICAL: DATE OF OFFICE VISIT: 04/20/18 DATE OF SURGERY: 05/02/18 SURGEON: Francisca Russell MD * (DICTATED BY YAJAIRA PRASAD) PROCEDURE: Left total knee arthroplasty. PRIMARY CARE PHYSICIAN: Dr. Konstantin Gilmore CHIEF COMPLAINT: Left knee pain. HISTORY OF PRESENT ILLNESS: Ms. Gentry Dubon is a 52-year-old female with complaints of continued left knee pain. She has failed conservative treatment and elected to proceed with a left total knee arthroplasty. PAST MEDICAL HISTORY: Hypertension, diabetes, depression, anxiety, CHF, IBS, history of SVT, asthma, GERD, and high cholesterol. PAST SURGICAL HISTORY: Tubal ligation, cholecystectomy, tonsillectomy, left knee scope, and cardiac ablation x2. CURRENT MEDICATIONS: 1. Vitamin D3. 2. Vitamin E. 3. Metoprolol 100 mg daily. 4. Atorvastatin calcium 10 mg daily. 5. Glimepiride 2 mg twice a day. 6. Lisinopril 10 mg daily. 7. Tolterodine tartrate ER 2 mg daily. 8. Duloxetine 60 mg daily. 9. Levocetirizine 5 mg daily. 10. Vitamin C. 11. Propranolol 80 mg daily. 12. Lantus. 13. Victoza. 14. Nucynta 50 mg every 6 hours. 15. Esomeprazole 40 mg daily. 16. Alprazolam 0.25 mg 3 times a day as needed. 17. Loperamide 2 mg 2 capsules every 6 hours as needed. ALLERGIES: DEMEROL, ASPIRIN, PENICILLIN, MORPHINE causing vomiting, LORABID, and TAPE. FAMILY HISTORY: Prostate cancer, stroke, diabetes, kidney disease, and AFib. SOCIAL HISTORY: She is a 52-year-old female. She lives with her spouse. She does not smoke, use drugs or alcohol. REVIEW OF SYSTEMS: A complete 14-point review of systems was reviewed with the patient, it is positive for diabetes, Eva's thyroiditis, and GERD. She denies history of DVT, PE, hepatitis, HIV, or anesthesia problems. PHYSICAL EXAMINATION GENERAL: She is well developed, well nourished, in no acute distress. VITAL SIGNS: She stands 64 inches tall, weighs 204 pounds. Blood pressure is 116/77, heart rate is 79. HEENT: Normocephalic, atraumatic. NECK: Supple. No palpable lymph nodes. PULMONARY: The lungs are clear to auscultation bilaterally. CARDIO: Regular rate and rhythm. Strong S1, S2. ABDOMEN: Soft, nontender, nondistended. NEUROLOGICAL: She is alert and oriented x3. MUSCULOSKELETAL: Left lower extremity: The skin is intact. There are no open wounds or abrasions. She walks with antalgic-type gait. She has moderate joint effusions and tenderness over the medial and lateral joint line. She has a 2+ dorsalis pedis pulse, intact sensation and her lower extremity muscle group strengths are intact at 5/5. ASSESSMENT AND PLAN: Ms. Gentry Dubon is a 52-year-old female with end-stage osteoarthritis of the left knee. She has failed conservative treatments and elected to proceed with a left total knee arthroplasty. The surgery is scheduled for 05/02/[address] Russell discussed the risks and benefits of the surgery at today's visit and all of her questions were answered. She will follow up with Dr. Russell 2 weeks after the surgery. YAJAIRA PRASAD [id number]/[facility] #: [id number] DAREK
[2018-05-01] MEDS ORDERED: Buffered Lidocaine 1% SYRIN* 1 ML/SYRINGE INTRADERM ONE (15:02)
[2018-05-02] MEDS ORDERED: Tranexamic Acid 1,000 MG in NS 0.9% 50 ML* (outpatient use) IV SCH ×2
--- OUTSIDE RECORDS SUMMARY | 2018-05-02 05:51 | XMS REPORT | Continuity of Care Document ---
:1965 External Reference #:[id number] Author Name Harriet Moreno Care Team Providers Name Role Phone Konstantin Gilmore MD Primary Care Physician Unavailable Payers Type Date Identification Numbers Payment Provider Subscriber Effective: 2014 Policy Number: [id number] BEATRICE Dubon PayID: [id number] [address] [address] [place] [address] Policy Number: [id number] Carlos Marti PayID: [id number] [address] [place] [address] Effective: 2014 Policy Number: [id number] Lizzethdhruv Marti Onset: 2014 Group Number: [id number] [address] Group Name: [id number] [phone] [place] [address] PayID: [id number] Advance Directives Description No Information Available Problems Date Description Provider Status Onset: 04/27/2017 Sprain of acromioclavicular ligament Shruthi Martines MD Active Onset: 04/27/2017 Sprain of medial collateral ligament of Shruthi Martines MD Active knee Onset: 04/27/2017 Complex tear of medial meniscus, current Shruthi Martines MD Active injury, left knee, subsequent encounter Onset: 08/22/2017 Derangement of posterior horn of medial Shruthi Martines MD Active meniscus Onset: 08/22/2017 Localized, primary osteoarthritis Shruthi Martines MD Active Onset: 08/22/2017 Other meniscus derangements, unspecified Shruthi Martines MD Active lateral meniscus, left knee Onset: 12/20/2017 Localized, secondary osteoarthritis Francisca Russell M.D. 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 ETOH Use Denies alcohol use Tobacco Use Start: Unknown Patient has never smoked Recreational Drug Use Denies Drug Use Smoking Status Reviewed: 04/20/18 Patient has never smoked Exercise Type/Frequency Exercises sporadically walks about twice weekly Allergies, Adverse Reactions, Alerts Date Description Reaction Status Severity Comments 03/23/2017 Meperidine Active 03/23/2017 Aspirin Active 03/23/2017 Penicillin Active 03/23/2017 Morphine Liposomal Active 07/21/2017 Loracarbef Active 07/28/2017 Tape Contact dermatitis Active Medications Medication Date Status Form Strength Qnty SIG Indications Ordering Provider Vitamin D-3 03/23/ Active Capsules 1000Unit 180ca 2 by mouth Shruthi 2016 ps every day MD Bobbi Vitamin E / Active Capsules 400Unit 1 by mouth Unknown 0000 every day Metoprolol 00/00/ Active Tablets ER 100mg 1 by mouth Unknown Succinate ER 0000 24HR every day Atorvastatin 00/00/ Active Tablets 10mg 1 by mouth Unknown Calcium 0000 every day Glimepiride 00/00/ Active Tablets 2mg 1 by mouth Unknown 0000 twice daily Lisinopril 00/00/ Active Tablets 10mg 1 by mouth Unknown 0000 every day Tolterodine 00/00/ Active Caps ER 2mg 1 by mouth Unknown Tartrate ER 0000 24HR every day Duloxetine HCL 00/00/ Active Caps DR 60mg 1 by mouth Unknown 0000 Part every day Levocetirizine / Active Tablets 5mg 1 by mouth Unknown Dihydrochloride 0000 every day Vitamin C 00/00/ Active Tablets 1000mg 1 by mouth Unknown 0000 every day Propranolol HCL / Active Caps ER 80mg 1 by mouth Unknown ER 0000 24HR every day Lantus Solostar / Active Solution 100Unit/M 40 units Unknown 0000 Pen-Inject L in Am and in PM Victoza / Active Solution 18mg/3ML inject 0.6 Unknown 0000 Pen-Inject mg daily in the evening Nucynta / Active Tablets 50mg Take One Unknown 0000 Tablet By Mouth Every 6 Hours as Needed For Pain Maximum Umair(pt takes 1 tablet twice daily). Esomeprazole / Active Capsules 40mg 1 by mouth Unknown Magnesium 0000 DR every day Alprazolam / Active Tablets 0.25mg one by Unknown 0000 mouth up to three times daily as needed for anxiety Loperamide HCL / Active Capsules 2mg take one Unknown 0000 capsule by mouth every 6 hours as needed Oxycodone HCL 08/09/ Hx Tablets 5mg 30tab 1-2 tabs Shruthi 2018 - s by mouth Bobbi 09/25/ every 4-6 2018 hours as needed Clindamycin HCL 08/09/ Hx Capsules 300mg 12cap take 1 by Joelb 2018 - s mouth four Bobbi, 12/19/ times a MD 2017 day for 3 days Spironolactone / Hx Tablets 25mg 1 by mouth Unknown 0000 - every day 2017 Methimazole / Hx Tablets 5mg 1 by mouth Unknown 0000 - every day 2017 Torsemide / Hx Tablets 10mg 1 by mouth Unknown 0000 - every day 2017 Vitamin B-12 / Hx Tablets 1000mcg 1 by mouth Unknown 0000 - every day 2017 Invokana / Hx Tablets 100mg 1 by mouth Unknown 0000 - every day 07/20/ 2018 breakfast Lantus Solostar / Hx Solution 100Unit/M 15 units Unknown 0000 - Pen-Inject L sub-q 07/20/ daily as 2018 directed Medications Administered in Office Medication Date Status Form Strength Qnty SIG Indications Ordering Provider Triamcinolone 04/27/ Administered Injection Shruthi (Kenalog) 2018 MD Bobbi Immunizations Description No Information Available Vital Signs Date Vital Result Comment 04/20/2018 10:26am Height 64 inches 5'4" Weight 204.00 lb Heart Rate 79 /min BP Systolic 116 mmHg BP Diastolic 77 mmHg Respiratory Rate 17 /min Pain Level 7 BMI (Body Mass Index) 35.0 kg/m2 04/16/2018 9:47am Height 64 inches 5'4" Weight 204.25 lb no shoes Heart Rate 96 /min BP Systolic Sitting 122 mmHg ule BP Diastolic Sitting 82 mmHg ule BMI (Body Mass Index) 35.1 kg/m2 Ejection Fraction 55-60% Echo 07/31/17 02/28/2018 10:15am Height 64 inches 5'4" Weight 199.00 lb Heart Rate 84 /min BP Systolic 106 mmHg BP Diastolic 70 mmHg BMI (Body Mass Index) 34.2 kg/m2 02/09/2018 8:54am Height 64 inches 5'4" Weight 199.00 lb BP Systolic 124 mmHg BP Diastolic 76 mmHg Body Temperature 97.9 F Pain Level 7 BMI (Body Mass Index) 34.2 kg/m2 12/20/2017 10:35am Height 64 inches 5'4" Weight 196.00 lb Heart Rate 92 /min BP Systolic 116 mmHg BP Diastolic 80 mmHg BMI (Body Mass Index) 33.6 kg/m2 11/28/2017 9:12am Height 64 inches 5'4" Weight 200.00 lb BP Systolic 124 mmHg BP Diastolic 76 mmHg Respiratory Rate 18 /min Pain Level 8 BMI (Body Mass Index) 34.3 kg/m2 09/26/2017 10:33am Height 64 inches 5'4" Weight 200.00 lb BP Systolic 132 mmHg BP Diastolic 80 mmHg Respiratory Rate 18 /min Body Temperature 96.6 F Pain Level 8 BMI (Body Mass Index) 34.3 kg/m2 08/22/2017 3:19pm Height 64 inches 5'4" Weight 200.00 lb BP Systolic 112 mmHg BP Diastolic 76 mmHg Respiratory Rate 18 /min Body Temperature 97.6 F Pain Level 4 BMI (Body Mass Index) 34.3 kg/m2 08/01/2017 8:41am Heart Rate 80 /min BP Systolic 98 mmHg BP Diastolic 70 mmHg Respiratory Rate 20 /min Body Temperature 96.0 F 07/28/2017 2:36pm Height 64 inches 5'4" Weight 200.25 lb no shoes Heart Rate 86 /min BP Systolic 120 mmHg L/A Lg cuff BP Diastolic 70 mmHg L/A Lg cuff BP Systolic Standing 120 mmHg L/A Lg Cuff BP Diastolic Standing 70 mmHg L/A Lg Cuff BMI (Body Mass Index) 34.4 kg/m2 Ejection Fraction 67% echo 06/20/2016 07/21/2017 10:41am Height 64 inches 5'4" Weight 199.00 lb Heart Rate 74 /min BP Systolic 118 mmHg BP Diastolic 70 mmHg Respiratory Rate 12 /min Body Temperature 96.7 F Pain Level 8 BMI (Body Mass Index) 34.2 kg/m2 06/20/2017 1:50pm Height 64 inches 5'4" Weight 191.00 lb BP Systolic 114 mmHg BP Diastolic 64 mmHg Respiratory Rate 18 /min Pain Level 8 BMI (Body Mass Index) 32.8 kg/m2 05/25/2017 10:42am Height 64 inches 5'4" Weight 191.00 lb per pt Heart Rate 80 /min reg BP Systolic Sitting 130 mmHg Lue BP Diastolic Sitting 74 mmHg Lue Respiratory Rate 16 /min Pain Level 8 right shoulder, 6 left knee BMI (Body Mass Index) 32.8 kg/m2 04/27/2017 10:33am Height 64 inches 5'4" Weight 191.00 lb per pt Heart Rate 78 /min reg Respiratory Rate 16 /min Pain Level 7 right shoulder, 9/10 left knee BMI (Body Mass Index) 32.8 kg/m2 03/23/2017 2:41pm Height 64 inches 5'4" Weight 200.00 lb Respiratory Rate 12 /min Body Temperature 97.8 F Pain Level 8 BMI (Body Mass Index) 34.3 kg/m2 Results Test Date Facility Test Result H/L Range Note Laboratory test 08/09/2017 [facility] Point of Care 154 mg/dL High 70-100 [address] [place] [address] [phone] Laboratory test 08/09/2017 [facility] Point of Care 168 mg/dL High 70-100 [address] [place] [address] [phone] Order 07/28/2017 Criminal Analyst In-House EKG <pending> 1 Aeronautical Engineering Technologist: [id number] Aeronautical Engineering Technologist: [id number] Procedures Date Code Description Status 04/16/2018 41420 EKG Tracing & Interpretation Completed 08/09/2017 15904 Arthroscopy,Knee,Meniscectomy Media & Lateral Completed 07/31/2017 04670 ECHO Transthoracic, Real-Time 2D With Doppler And Color Completed Flow 07/31/2017 65340 ECHO Transthoracic, Real-Time 2D With Doppler And Color Completed Flow 07/28/2017 88925 EKG Tracing & Interpretation Completed 04/27/2017 72103 Inject/Drain Joint/Bursa Major W/O US Completed 12/18/2015 70686 ECHO Transthorasic Realtime 2D W Doppler & Color Flow Hosp Completed 12/18/2015 15923 EKG, Interpretation Only Completed 12/17/2015 45186 EKG, Interpretation Only Completed 12/17/2015 96770 EKG, Interpretation Only Completed 04/21/2011 19814 Color Flow Doppler/Interp & Reprt Completed 04/21/2011 88332 Pulse Wave/Continuous-Interp.RPT Completed 04/21/2011 62152 ECHO Transthorasic Realtime 2D W Doppler & Color Flow Hosp Completed Encounters Type Date Location Provider Dx Diagnosis Office Visit 02/28/2018 Orthopedic Francisca Russell, M25.562 Pain in left knee 10:00a [facility] Of Juli Stokes M25.462 Effusion, left knee M17.12 Unilateral primary osteoarthritis, left knee Office Visit 02/09/2018 Orthopedic Shruthi Martines, M17.32 Unilateral 8:45a [facility] osteoarthritis, left knee M25.552 Pain in left hip M25.572 Pain in left ankle and joints of left foot M25.571 Pain in right ankle and joints of right foot Office Visit 12/20/2017 Jung Espinosa M17.32 Unilateral 10:30a Services [facility] Divya Russell [facility]traumatic [facility] osteoarthritis, left knee M25.562 Pain in left knee M25.462 Effusion, left knee Office Visit 11/28/2017 9:00a Orthopedic Shruthi Martines, M23.322 Oth meniscus Services Of MD sebastian, post [facility] horn of medial meniscus, l knee M17.12 Unilateral primary osteoarthritis, left knee Office Visit 08/01/2017 8:45a Orthopedic Shruthi Martines, S83.232D Complex tear [facility] mensc, current injury, l knee, subs S83.412D Sprain of medial collateral ligament of left knee, subs S80.212A Abrasion, left knee, initial encounter W19.xxxA Unspecified fall, initial encounter Office Visit 07/28/2017 Mik Chowdhury I42.9 Cardiomyopathy, 2:40p Cardiology Divya Drummond unspecified I47.1 Supraventricular tachycardia E66.9 Obesity, unspecified I10 Essential (primary) hypertension E11.9 Type 2 diabetes mellitus without complications E78.4 Other hyperlipidemia Z01.810 Encounter for preprocedural cardiovascular examination Office Visit 06/20/2017 2:15p Orthopedic Shruthi Martines, S83.412D Sprain of medial [facility] collateral [facility] ligament of left knee, subs S43.51xD Sprain of right acromioclavicular joint, subs encntr S83.232D Complex tear of medial mensc, current injury, l knee, subs Office Visit 05/25/2017 10:45a Orthopedic Shruthi Martines, S83.412A Sprain of medial Services [facility] collateral [facility] ligament of left knee, init S83.232D Complex tear of medial mensc, current injury, l knee, subs S43.51xA Sprain of right acromioclavicular joint, initial encounter S43.51xD Sprain of right acromioclavicular joint, subs encntr Office Visit 04/27/2017 Jung Hutchison3.51xA Sprain of right 10:45a Services Of MD Bobbi acromioclavicular [facility] joint, initial encounter S83.412A Sprain of medial collateral ligament of left knee, init S83.232D Complex tear of medial mensc, current injury, l knee, subs Office Visit 03/23/2017 Orthopedic Shruthi S43.51xA Sprain of right 1:30p Services Of MD Bobbi acromioclavicular [facility] joint, initial encounter S83.412A Sprain of medial collateral ligament of left knee, init S43.101A Unsp dislocation of right acromioclavicular joint, init Office Visit 12/18/2015 10:40a [facility] Viktoria Andrews, R53.1 [facility]ness Assoc, Hospitalists Divya I47.1 Supraventricular tachycardia I42.9 Cardiomyopathy, unspecified Office Visit 12/17/2015 10:39a [facility] Sherman May, R53.1 Weakness Assoc, Hospitalists Liliana I47.1 Supraventricular tachycardia I42.9 Cardiomyopathy, unspecified Office 04/21/2011 [place] Martine S. 794.31 Electrocardiogram Visit 9:02a Cardiology Divya Drummond (ECG) (EKG) Abnormal 428.21 Systolic Heart Failure Acute 425.9 Cardiomyopathy Secondary Unspecified 786.05 Shortness Of Breath Plan of Treatment Future Appointment(s):05/16/2018 9:15 am - Francisca Russell M.D. at [facility]05/02/2018 7:30 am - YAJAIRA Murphy at [facility]05/02/2018 7:30 am - Francisca Russell M.D. at [facility]
--- OUTSIDE RECORDS SUMMARY | 2018-05-02 05:51 | XMS REPORT | Continuity of Care Document ---
:1965 External Reference #:[id number] Author Name Faye Jones Care Team Providers Name Role Phone Konstantin Gilmore MD Primary Care Physician Unavailable Payers Type Date Identification Numbers Payment Provider Subscriber Effective: 2014 Policy Number: [id number] BEATRICE Page Thai Ling PayID: [id number] [address] [address] [place] [address] Policy Number: [id number] Carlos Marti PayID: [id number] [address] [place] [address] Effective: 2014 Policy Number: [id number] Sherif Camryn Marti Onset: 2014 Group Number: [id number] [address] Group Name: [id number] [phone] [place] [address] PayID: [id number] Advance Directives Description No Information [...] Use Denies Drug Use Smoking Status Reviewed: 04/16/18 Patient has never smoked Exercise Type/Frequency Exercises [...] mouth Unknown Calcium 0000 every day Glimepiride /00/ Active Tablets 2mg 1 by mouth Unknown [...] Hx Capsules 300mg 12cap take 1 by Shruthi 2018 - s mouth four Bobbi, 12/19/ times a 2017 day for 3 days Spironolactone / [...] Provider Triamcinolone 04/27/ Administered Injection Shruthi (Kenalog) 2017 MD Bobbi Immunizations Description No Information Available Vital Signs Date Vital Result Comment 04/16/2018 9:47am Height 64 inches 5'4" Weight [...] Result H/L Range Note Laboratory test 08/09/2017 [facility] Point of Care 154 mg/dL High 70-100 [address] [place] [address] [phone] Laboratory test 08/09/2017 [facility] Point of Care 168 mg/dL High 70-100 [address] Glucose [place], [place] [address] [phone] Order 07/28/2017 Sewer Line Repairer In-House EKG <pending> 1 Corporate Ethics Officer: [id number] Corporate Ethics Officer: [id number] Procedures Date Code Description Status 04/16/2018 44710 EKG Tracing & Interpretation Completed 08/09/2017 77358 Arthroscopy,Knee,Meniscectomy Media & Lateral Completed 07/31/2017 28361 ECHO Transthoracic, Real-Time 2D With Doppler And Color Completed Flow 07/31/2017 13213 ECHO Transthoracic, Real-Time 2D With Doppler And Color Completed Flow 07/28/2017 17884 EKG Tracing & Interpretation Completed 04/27/2017 28029 Inject/Drain Joint/Bursa Major W/O US Completed 12/18/2015 66231 ECHO Transthorasic Realtime 2D W Doppler & Color Flow Hosp Completed 12/18/2015 08617 EKG, Interpretation Only Completed 12/17/2015 89124 EKG, Interpretation Only Completed 12/17/2015 45282 EKG, Interpretation Only Completed 04/21/2011 45743 Color Flow Doppler/Interp & Reprt Completed 04/21/2011 45547 Pulse Wave/Continuous-Interp.RPT Completed 04/21/2011 88232 ECHO Transthorasic Realtime 2D W Doppler & Color Flow Hosp Completed Encounters Type Date Location Provider Dx Diagnosis Office Visit 02/28/2018 Orthopedic Francisca Russell, M25.562 Pain in left knee 10:00a Services Of Juli Stokes M25.462 Effusion, left knee M17.12 Unilateral primary osteoarthritis, left knee Office Visit 02/09/2018 Orthopedic Shruthi Martines, M17.32 Unilateral 8:45a Services Of post-traumatic [facility] osteoarthritis, left knee M25.552 Pain in left hip M25.572 Pain in left ankle and joints of left foot M25.571 Pain in right ankle and joints of right foot Office Visit 12/20/2017 Orthopedic Francisca M17.32 Unilateral 10:30a Services Of Divya Russell post-traumatic [facility] osteoarthritis, left knee M25.562 Pain in left knee M25.462 Effusion, left knee Office Visit 11/28/2017 9:00a Orthopedic Shruthi Martines, M23.322 Oth meniscus Services Of MD sebastian, post [facility] horn of medial meniscus, l knee M17.12 Unilateral primary osteoarthritis, left knee Office Visit 08/01/2017 8:45a Orthopedic Shruthi Martines, S83.232D Complex tear Services Of of jarvis [facility] mensc, current injury, l knee, subs S83.412D Sprain of medial collateral ligament of left knee, subs S80.212A Abrasion, left knee, initial encounter W19.xxxA Unspecified fall, initial encounter Office Visit 07/28/2017 Mik Allen. I42.9 Cardiomyopathy, 2:40p Cardiology Divya Drummond unspecified [...] acromioclavicular joint, subs encntr Office Visit 04/27/2017 Orthopedic Shruthi S43.51xA Sprain of right 10:45a Services Of MD [...] acromioclavicular joint, init Office Visit 12/18/2015 10:40a [facility] Viktoria Andrews, R53.1 Weakness Assoc,manjit Hospitalists Divya I47.1 Supraventricular tachycardia I42.9 Cardiomyopathy, unspecified Office Visit 12/17/2015 10:39a [facility] [place], R53.1 [facility]oc, Hospital[facility] I47.1 Supraventricular tachycardia I42.9 Cardiomyopathy, unspecified Office 04/21/2011 [facility] Martine Chowdhury 794.31 Electrocardiogram Visit 9:02a Cardiology Divya Drummond (ECG) (EKG) Abnormal 428.21 Systolic Heart Failure Acute 425.9 Cardiomyopathy Secondary Unspecified 786.05 Shortness Of Breath Plan of Treatment Future Appointment(s):05/02/2018 7:30 am - YAJAIRA Murphy at [facility].05/02/2018 7:30 am - Francisca Russell M.D. at [facility].04/20/2018 10:00 am - Francisca Russell M.D. at [facility].04/16/2018 - Martine Drummond M.D.I42.9 Cardiomyopathy, unspecifiedFollow up:9 months ovE66.9 Obesity, zjofsdadlzgY57 Essential (primary ) axjxoernmtrkG51.9 Type 2 diabetes mellitus without mxrfcfnqukvpqU21.810 Encounter for preprocedural cardiovascular examination
[2018-05-02] MEDS ORDERED: Lactated Ringers 1000 ML Bag* 1,000 ML IV SCH (06:00)
[2018-05-02] MEDS ORDERED: Clindamycin 900 MG/D5W BAG(*) 900 MG/50 ML BAG IVPB ONE (06:41)
[2018-05-02] MEDS ORDERED: Buffered Lidocaine 1% SYRIN* 1 ML/SYRINGE INTRADERM ONE (06:41)
[2018-05-02] MEDS ORDERED: ROPIVACAINE 5 MG/ML 30 ML BTL (0.5%) ONE ×2 (06:45→07:10)
[2018-05-02] MEDS ORDERED: Propofol* 10 MG/ML 20 ML BTL ONE (07:10)
[2018-05-02] MEDS ORDERED: Lidocaine 2% PF * 5 ML VIAL ONE (07:10)
[2018-05-02] MEDS ORDERED: fentaNYL* 50 MCG/ML 2 ML VIAL (100 MCG VIAL) ONE (07:11)
[2018-05-02] MEDS ORDERED: Dexamethasone IV* 4 MG/ML 1 ML (4 MG) ONE (07:11)
[2018-05-02] MEDS ORDERED: Midazolam* 1 MG/ML 2 ML VIAL (2 MG) ONE (07:11)
[2018-05-02] MEDS ORDERED: Rocuronium* 10 MG/ML VIAL ONE ×2 (07:13→08:31)
[2018-05-02] MEDS ORDERED: Phenylephrine INJ* 10 MG/ML 1 ML VIAL (10 MG) ONE ×3 (08:16→11:37)
[2018-05-02] MEDS ORDERED: HYDROmorphone INJ1* 1 MG/ML SYRINGE ONE ×3 (08:31→11:53)
[2018-05-02] MEDS ORDERED: Naloxone* 0.4 MG/ML 1 ML VIAL IV PRN (09:14)
[2018-05-02] MEDS ORDERED: Acetaminophen IV 1GM/100ML * 1,000 MG/100 ML VIAL IVPB ONE (09:14)
[2018-05-02] MEDS ORDERED: oxyCODONE TAB* 5 MG TAB PO PRN (09:14)
[2018-05-02] MEDS ORDERED: Glycopyrrolate IV* 0.2 MG/ML 1 ML VIAL ONE (09:51)
[2018-05-02] MEDS ORDERED: Ketorolac INJ* 30 MG/ML 1 ML VIAL ONE (09:51)
[2018-05-02] MEDS ORDERED: Ondansetron INJ* 2 MG/ML VIAL ONE (09:51)
[2018-05-02] MEDS ORDERED: Metoclopramide IV* 5 MG/ML 2 ML VIAL ONE (09:51)
[2018-05-02] MEDS ORDERED: Neostigmine Methylsulfate* 1 MG/ML 10 ML VIAL (1 mg/ml) ONE (09:51)
[2018-05-02] MEDS ORDERED: Bisacodyl SUPP* 10 MG SUPP PR PRN (10:14)
[2018-05-02] MEDS ORDERED: diPHENhydraMINE IV* 50 MG/ML 1 ml VIAL (BENADRYL) IV PRN (10:14)
[2018-05-02] MEDS ORDERED: Magnesium Hydroxide LIQ* 30 ML UDC PO PRN (10:14)
[2018-05-02] MEDS ORDERED: Ondansetron INJ* 2 MG/ML VIAL IV PRN (10:14)
[2018-05-02] MEDS ORDERED: Polyethylene Glycol 3350* 17 GM PACKET PO PRN (10:14)
[2018-05-02] MEDS ORDERED: Ondansetron TAB* 4 MG PO PRN (10:14)
[2018-05-02] MEDS ORDERED: HYDROmorphone INJ* 1 MG/ML CARPUJECT SYRINGE IV SLOW PU PRN (10:18)
[2018-05-02] MEDS ORDERED: ALPRAZolam TAB* 0.25 MG PO PRN (10:18)
[2018-05-02] MEDS ORDERED: Albuterol HFA INHALER* 8 gm MDI INH PRN (10:18)
[2018-05-02] MEDS ORDERED: Clindamycin 600 MG IVPREMIX(* 600 MG/50 ML SDV IV SCH (11:00)
[2018-05-02] MEDS ORDERED: Acetaminophen TAB* 325 MG PO SCH (11:00)
[2018-05-02] MEDS ORDERED: traMADol TAB* 50 MG ONE (11:05)
[2018-05-02] MEDS ORDERED: Acetaminophen IV 1GM/100ML * 100 ML ONE (11:05)
[2018-05-02] MEDS: traMADol TAB* 50 MG PO PRN ×2 (11:07→19:20)
[2018-05-02] MEDS: HYDROmorphone INJ1* 1 MG/ML SYRINGE IV PRN ×4 (11:07→11:57)
[2018-05-02] MEDS ORDERED: hydrALAZINE IV* 20 MG/ML VIAL ONE (11:55)
[2018-05-02] MEDS ORDERED: Scopolamine 1.5 mg* PATCH ONE (12:04)
[2018-05-02] MEDS: Lactated Ringers 1000 ML Bag* 1,000 ML IV SCH ×2 (12:46→23:53)
[2018-05-02 13:10] LABS: Rapid HIV 1 Nonreactive (Nonreactive)
[2018-05-02 14:12] LABS: Hepatitis B Surface AB Immune (Immune)
[2018-05-02 14:22] LABS: Hepatitis B Surface Antigen Nonreactive (Nonreactive)
[2018-05-02] MEDS: TAPENTADOL 50 MG PO SCH ×2 (14:24→20:48)
[2018-05-02] MEDS ORDERED: Dextrose 50% Syringe 50 ML* 25 GM/50 ML SYRINGE IV PUSH PRN (14:41)
[2018-05-02 14:48] LABS: Hepatitis C Antibody Nonreactive (Nonreactive)
[2018-05-02] MEDS: oxyCODONE TAB* 5 MG TAB PO PRN ×2 (15:19→20:49)
[2018-05-02] MEDS: Clindamycin 600 MG IVPREMIX(* 600 MG/50 ML SDV IV SCH ×2 (16:16→23:54)
--- NOTE | 2018-05-02 16:30 | CONS ---
CC: Dr. Gilmore; Dr. Russell * CONSULTATION REPORT: DATE OF CONSULT: 05/02/18 PRIMARY CARE PROVIDER: Dr. Gilmore. REASON FOR CONSULT: Diabetic management of the patient after a knee surgery. CHIEF COMPLAINT: Left knee pain. HISTORY OF PRESENT ILLNESS: Camryn Dubon is a 52-year-old female with history of osteoarthritis, who is status post elective left knee replacement. The patient is seen for evaluation and consultation of postoperative management of diabetes and hypertension. Currently, the patient complains of left leg pain postoperatively. She stated that her diabetic control was well managed on glyburide as well as insulin Lantus twice a day. PAST MEDICAL HISTORY: 1. History of nonischemic cardiomyopathy with EF of 20%, diagnosed in 2011 and recent EF "within normal limits" around 55%. 2. History of supraventricular arrhythmia, ectopic atrial tachycardia and atrial fibrillation, status post ablation in the past that had been successful as per the patient. 3. History of hyperthyroidism. 4. Gastroesophageal reflux disease. 5. Depression. 6. Seasonal allergies. 7. Irritable bowel syndrome. 8. Diabetes type 2. 9. Anxiety. PAST SURGICAL HISTORY: 1. Status post tubal ligation. 2. Tonsillectomy. 3. Cholecystectomy. MEDICATIONS AT HOME: Include: 1. Detrol LA 4 mg daily. 2. Nucynta 50 mg 3 times a day. 3. Propranolol 80 mg daily. 4. Zofran on a p.r.n. basis. 5. Metoprolol succinate 100 mg daily. 6. Loperamide 2 mg on a p.r.n. basis. 7. Lisinopril 10 mg daily. 8. Victoza 0.6 mg subcutaneously every afternoon. 9. Xyzal 5 mg daily. 10. Insulin Lantus 40 units b.i.d. 11. Glimepiride 2 mg b.i.d. 12. Nexium 40 mg daily. 13. Cymbalta 60 mg daily. 14. Vitamin B12 1000 mcg daily. 15. Vitamin D3 4000 units daily. 16. Lipitor 10 mg daily. 17. Ascorbic acid 1000 mg daily. 18. Albuterol inhaler on a p.r.n. basis. 19. Alprazolam 0.25 mg up to 3 times a day p.r.n. ALLERGIES: Multiple and include LORACARBEF as well as PENICILLIN, ASPIRIN, MEPERIDINE, MORPHINE, ADHESIVE TAPE. FAMILY HISTORY: Positive for both parents with diabetes. Father with prostate cancer and mother with history of hypertension. SOCIAL HISTORY: The patient denies any tobacco, alcohol, or drug use. Her decision making person/surrogate is her mother. The patient is a health aide by profession. REVIEW OF SYSTEMS: Please note that the patient is mildly sedated after surgery. She denies any shortness of breath, chest pain. She complains of pain in her postoperative left knee. All the remaining 12 systems were reviewed with the patient and were otherwise negative. PHYSICAL EXAM: Blood pressure of 114/70, heart rate of 88 and regular, respiratory rate 16, oxygen saturation 97% on 2 L of oxygen via nasal cannula, temperature of 97.6. General: The patient is a very pleasant 52-year-old female, who is in no acute distress, slightly lethargic post anesthesia, but otherwise alert and oriented x3. HEENT: Head: Atraumatic, normocephalic. Eyes: Pupils are equal and reactive to light and accommodation. Oropharynx clear. Mucosa moist. Neck: Supple. No JVD. No bruits bilaterally. Cardiovascular: Regular rate and rhythm. No murmur. Respiratory: Clear to auscultation bilaterally. Abdomen: Soft, nontender. Bowel sounds are present in all 4 quadrants. Extremities: There is no edema. Pulses are 2+ bilaterally. No clubbing or cyanosis. The left knee is in postsurgical dressings and Cryo unit in place. Neuro Evaluation: Speech is clear. Cranial nerves II through XII are grossly intact. Motor strength is 5/5 bilaterally. There is limitation of evaluation in the left lower extremity due to postoperative state. LABORATORY DATA: Current laboratory data: None. ASSESSMENT AND PLAN: 1. In regards to the patient's postoperative management of left knee, that is going to be under the care of the orthopedic service. 2. For the patient's diabetes, the patient is going to be restarted on insulin Lantus at lower dose at 10 units twice a day. Her glimepiride and Victoza are going to be held. 3. For hypertension, the patient's propranolol is going to be continued. I will hold the patient's lisinopril since her systolic pressures are in the low 100s. I will also continue the patient's metoprolol. 4. For DVT prophylaxis, the patient was already placed on enoxaparin by orthopedic service. 5. The patient's code status is full and her surrogate is her mother. TIME SPENT: Approximately 62 minutes was spent on consultation of this patient , more than half that time was spent [id number] with the patient during the interview and physical exam. [id number]/[facility] #: [id number] DAREK
[2018-05-02] MEDS ORDERED: Warfarin TAB(*) 6 MG PO ONE (17:00)
[2018-05-02] MEDS: Atorvastatin* 10 MG TAB PO SCH (17:34)
[2018-05-02] MEDS: Insulin LISPRO* 1 UNITS UNIT SUBCUT SCH ×2 (17:34→22:23)
[2018-05-02] MEDS: Propranolol LA CAP* 80 MG PO SCH (17:40)
[2018-05-02] MEDS: oxyCODONE/Acetamin 5/325 MG* TAB PO PRN (17:40)
[2018-05-02] MEDS: Acetaminophen TAB* 325 MG PO SCH ×2 (17:42→22:21)
[2018-05-02] MEDS ORDERED: NF:Liraglutide (NF) 18 MG/3 ML SUBCUT SCH (18:00)
[2018-05-02] MEDS: Docusate CAP* 100 MG PO SCH (20:48)
[2018-05-02] MEDS ORDERED: CMC:Glimepiride (NF) 2 MG TAB PO SCH (21:00)
[2018-05-02] MEDS ORDERED: Insulin GLARGINE(*) 1 UNITS UNIT SUBCUT SCH (21:00)
--- NOTE | 2018-05-02 21:11 | OP ---
DATE OF OPERATION: 05/02/18 - ROOM #341 DATE OF : 63 ATTENDING SURGEON: Francisca Russell MD BOAT HOP: YAJAIRA Hart. Ms. Alcantara did help throughout the procedure with preparation of the leg, wound retraction, manipulation of the knee, and wound closure. ANESTHESIOLOGIST: Dr. Chavez. ANESTHESIA: General. PRE-OP DIAGNOSIS: Severe end-stage degenerative osteoarthritis of the left knee joint. POST-OP DIAGNOSIS: Severe end-stage degenerative osteoarthritis of the left knee joint. OPERATIVE PROCEDURE: Let total knee arthroplasty. TOURNIQUET TIME: 44 minutes. COMPLICATIONS: None. ESTIMATED BLOOD LOSS: 300 cc. SPECIMENS: Bone and cartilage from the left knee joint sent to Pathology. HARDWARE USED: This is cemented [employer] total knee arthroplasty hardware. Two packages of Simplex bone cement. For the femur, a left Oxinium 5 narrow Legion posterior stabilized femoral component. For the tibia, a left size 3 Glory II tibial baseplate. For the insert, an 11 mm posterior stabilized articular insert size 3-4, and for the patella, a 32-mm 3-peg all- poly patella. BRIEF HISTORY/INDICATIONS: Ms. Camryn Dubon is a 52-year-old female with years of increasingly severe left knee pain. Conservative treatment failed to relieve her pain. She failed conservative treatment with antiinflammatories, pain medication, intraarticular injections, arthroscopy, and physical therapy. Due to continued pain and decreased quality of life, she elected to undergo left total knee arthroplasty. Radiographs showed advanced arthritis with [id number] contact. Informed consent was obtained from the patient. She understood the risks of surgery included, but were not limited to , bleeding, infection, damage to nearby structures, continued pain, need for further surgery, intraoperative fracture, nerve palsy, hardware failure or loosening, knee stiffness, loss of motion, stroke, heart attack, blood clot, and . She wished to proceed. INTRAOPERATIVE FINDINGS: Intraoperatively, the patient was noted to have laxity of the MCL as well as significant arthritis with complete loss of cartilage in all 3 compartments. She had extensive osteophyte formation. She was noted to have osteopenia which was abnormal especially for her age. DESCRIPTION OF PROCEDURE: Ms. Gentry Dubon was identified in the preanesthesia unit. Her left lower extremity was marked as the correct operative side. Informed consent was signed and placed in the chart. The patient was taken to the operating room and placed under general anesthesia. A Cornelius catheter was placed. Tourniquet was placed on the left thigh. Left lower extremity was prepped and draped in the usual sterile fashion. Preop time-out was made to correctly identify the patient, side, and site. Appropriate perioperative antibiotics were given within 1 hour of incision. Tourniquet was inflated and total tourniquet time for this procedure was 44 minutes. A midline incision was made with a 10 blade and carried down to the extensor mechanism. A new 10 blade was used to make a standard medial parapatellar arthrotomy. The electrocautery was used to subperiosteally elevate soft tissue off the superomedial tibia. Any osteophytes were removed with a rongeur. The knee was flexed up. The anterior horn of the lateral meniscus and ACL were sharply released. A drill was used to enter the distal femur. Intramedullary distal femoral cutting guide was pinned on the distal femur. Oscillating saw was used to make the distal femoral cut. The external rotation guide was pinned on the distal femur. Distal femur was sized to a size 5. Size 5 multi-cutting jig was pinned on the distal femur. Oscillating saw was used to make the appropriate 4 chamfer cuts. PCL was completely released. The tibia was subluxed anteriorly. Extramedullary tibial cutting guide was pinned on the proximal tibia. Oscillating saw was used to make the proximal tibial cut perpendicular to the mechanical axis of the tibia. The bone was carefully removed. The knee was brought out into full extension. Spacer block had good fit. There was medial and lateral ligamentous balancing. MCL laxity was noted from the start of the case. Flexion and extension gaps were well balanced. The knee was flexed up. Lamina glue spreader was placed both medially and laterally. Any remaining meniscus was removed using electrocautery. Curved osteotome was used to remove any posterior osteophytes. Tibial tray and drop vitor were placed and the satisfactory tibial cut was once again confirmed. A size 5 left narrow femoral trial was impacted on to the distal femur and had excellent fit and stability. The posterior stabilized implant was prepared using a reamer and box cut osteotome. A 3 tibial tray trial with an 11 mm insert trial was placed and the knee was taken through a range of motion. The knee had full extension to 130 degrees of flexion. There was satisfactory patellofemoral tracking. The patella was everted. 7 mm of patellar bone and cartilage was carefully removed using an oscillating saw. The patella was sized to a size 32. Three peg holes were drilled through the size 32 guide. A 32 trial patella with 7.5 thickness was placed and the knee was taken through range of motion. There was satisfactory patellofemoral tracking. All trials were carefully removed. Tibia was subluxed anteriorly and sized to a size 3. Proximal tibia was prepared using a size 3 keel punch. All bony cut surfaces were copiously irrigated with sterile saline and dried. Final implants were cemented into place starting with the tibia, followed by the femur , and last the patella. The 11 mm insert trial was placed and the knee was brought out into full extension. The tourniquet was turned down at 44 minutes. The knee was copiously irrigated with sterile saline. Electrocautery was used to obtain meticulous hemostasis. Once the cement had fully cured, the insert trial was removed. Any excess cement was removed from around the capsule and hardware. Final insert chosen was an 11 mm posterior stabilized articular insert size 3-4. This was locked into position on the tibial tray. Stability of the insert was checked and rechecked and noted to be stable. The extensor mechanism was closed using interrupted #1 Vicryl. The rest of the incision was closed in a layered fashion using 0 and 2-0 Vicryl. Skin was closed using running 3-0 nylon suture. Sterile Xeroform, 4x4s, and Webril were used to cover the incision. Joey wrap and cold pack were placed over this. The patient's anesthesia was reversed without difficulty. She was taken to the PACU in stable condition. Intended weightbearing will be weightbearing as tolerated. Intended DVT prophylaxis will be Eliquis. [id number]/[facility] #: [id number] [facility] C[facility]ERSergio
[2018-05-02] MEDS: Insulin GLARGINE(*) 1 UNITS UNIT SUBCUT SCH (22:22)
[2018-05-02] MEDS: Magnesium Hydroxide LIQ* 30 ML UDC PO SCH (22:22)
[2018-05-03] MEDS ORDERED: HYDROmorphone INJ1* 1 MG/ML SYRINGE ONE (00:10)
[2018-05-03] MEDS ORDERED: HYDROmorphone INJ1* 1 MG/ML SYRINGE IV SLOW PU PRN (00:16)
[2018-05-03] MEDS: oxyCODONE TAB* 5 MG TAB PO PRN ×3 (03:22→13:45)
[2018-05-03] MEDS: Acetaminophen TAB* 325 MG PO SCH ×3 (03:28→19:52)
[2018-05-03] MEDS: oxyCODONE/Acetamin 5/325 MG* TAB PO PRN ×3 (05:40→17:02)
[2018-05-03 05:59] LABS: Hematocrit 35 % (35-47); Hemoglobin 11.8 g/dl (12.0-16.0); Mean Platelet Volume 8.5 fL (7.4-10.4); Platelet Count 180 10^3/ul (150-450)
[2018-05-03 06:08] LABS: INR 1.01 (0.77-1.02)
[2018-05-03 06:19] LABS: BUN/Creatinine Ratio 23.2 (8-20); Calcium 9.2 mg/dL (8.6-10.3); EGFR African American 107.7 (>60); Potassium 4.5 mmol/L (3.5-5.0)
[2018-05-03] MEDS: Clindamycin 600 MG IVPREMIX(* 600 MG/50 ML SDV IV SCH (07:56)
[2018-05-03] MEDS: Magnesium Hydroxide LIQ* 30 ML UDC PO SCH ×2 (07:57→21:24)
[2018-05-03] MEDS: Insulin GLARGINE(*) 1 UNITS UNIT SUBCUT SCH ×2 (07:57→21:25)
[2018-05-03] MEDS: Insulin LISPRO* 1 UNITS UNIT SUBCUT SCH ×4 (07:57→21:25)
[2018-05-03] MEDS: TAPENTADOL 50 MG PO SCH ×3 (07:58→21:27)
[2018-05-03] MEDS: Cetirizine* 10 MG TAB PO SCH (07:58)
[2018-05-03] MEDS: Metoprolol Succinate XL TAB* 100 MG PO SCH (07:58)
[2018-05-03] MEDS: Docusate CAP* 100 MG PO SCH ×2 (07:58→21:25)
[2018-05-03] MEDS: Pantoprazole TAB * 40 MG TAB PO SCH (07:58)
[2018-05-03] MEDS: DULoxetine DR CAP* 60 MG CAP.DR PO SCH (07:59)
[2018-05-03] MEDS: Oxybutynin XL TAB* 5 MG PO SCH (08:00)
[2018-05-03] MEDS ORDERED: Lisinopril TAB* 10 MG PO SCH (09:00)
[2018-05-03 09:15] LABS: Magnesium 1.6 mg/dL (1.9-2.7)
[2018-05-03] MEDS: Apixaban* 2.5 MG TAB PO SCH ×2 (09:15→21:25)
[2018-05-03] MEDS ORDERED: Enoxaparin(*) 40 MG/0.4 ML SYR SUBCUT SCH (12:00)
[2018-05-03] MEDS: Morphine TAB Extended Release (*) 15 MG TAB.ER PO SCH ×2 (12:31→21:26)
[2018-05-03] MEDS: Cyclobenzaprine TAB* 10 MG PO PRN (12:32)
--- NOTE | 2018-05-03 14:03 | PN ---
Subjective Date of Service: 05/03/18 Interval History: Patient sitting in chair on initial assessment. Reports increase in left knee pain since PT this afternoon. Reports occasional sob when she gets "upset" or is "in a lot of pain". No sob with exertion, rest, or lying flat. Denies cp, palpitations, n/v/d, numbness/tingling, fever/chills Objective Active Medications: Acetaminophen (Tylenol Tab*) 975 mg PO 0300,1100,1900 [facility] Last Admin: 05/03/18 11:44 Dose: Not Given Albuterol (Ventolin Hfa Inhaler*) 2 puff INH Q6H PRN PRN Reason: SHORTNESS OF BREATH Alprazolam (Xanax Tab*) 0.25 mg PO TID PRN PRN Reason: ANXIETY Apixaban (Eliquis*) 2.5 mg PO BID [facility] Last Admin: 05/03/18 09:15 Dose: 2.5 mg Atorvastatin Calcium (Lipitor*) 10 mg PO QPM [facility] Last Admin: 05/02/18 17:34 Dose: 10 mg Bisacodyl (Dulcolax Supp*) 10 mg MS DAILY PRN PRN Reason: constipation Cetirizine HCl (Zyrtec*) 10 mg PO QAM [facility] Last Admin: 05/03/18 07:58 Dose: 10 mg Cyclobenzaprine HCl (Flexeril Tab*) 10 mg PO TID PRN PRN Reason: SPASMS Last Admin: 05/03/18 12:32 Dose: 10 mg Dextrose (D50w Syringe 50 Ml*) 12.5 gm IV PUSH .FOR FS < 60 - SS PRN PRN Reason: FS < 60 Diphenhydramine HCl (Benadryl Iv*) 12.5 mg IV Q6H PRN PRN Reason: PRURITIS Docusate Sodium (Colace Cap*) 100 mg PO BID [facility] Last Admin: 05/03/18 07:58 Dose: 100 mg Duloxetine HCl (Cymbalta Cap*) 60 mg PO QAM [facility] Last Admin: 05/03/18 07:59 Dose: 60 mg Hydromorphone HCl (Dilaudid Inj1s*) 0.5 mg IV SLOW PU Q4H PRN PRN Reason: PAIN Last Admin: 05/03/18 09:15 Dose: 0.5 mg Lactated Ringer's (Lactated Ringers 1000 Ml Bag*) 1,000 mls @ 100 mls/hr IV PER RATE [facility] Last Admin: 05/02/18 23:53 Dose: 100 mls/hr Insulin Glargine (Lantus(*)) 10 units SUBCUT BID [facility] Last Admin: 05/03/18 07:57 Dose: 10 units Insulin Human Lispro (Humalog*) 0 units SUBCUT ACHS [facility]; Protocol Last Admin: 05/03/18 11:49 Dose: 6 units Lactulose (Lactulose*) 30 ml PO Q6H PRN PRN Reason: constipation Magnesium Hydroxide (Milk Of Magnesia Liq*) 30 ml PO BID [facility] Last Admin: 05/03/18 07:57 Dose: 30 ml Magnesium Hydroxide (Milk Of Magnesia Liq*) 30 ml PO Q6H PRN PRN Reason: constipation Metoprolol Succinate (Toprol Xl Tab*) 100 mg PO [facility] Last Admin: 05/03/18 07:58 Dose: 100 mg Morphine Sulfate (Ms Contin(*)) 15 mg PO Q12HR [facility] Last Admin: 05/03/18 12:31 Dose: 15 mg Ondansetron HCl (Zofran Inj*) 4 mg IV Q6H PRN PRN Reason: nausea Last Admin: 05/03/18 12:32 Dose: 4 mg Ondansetron HCl (Zofran Tab*) 4 mg PO Q6H PRN PRN Reason: NAUSEA Oxybutynin Chloride (Ditropan Xl Tab*) 10 mg PO [facility]; Protocol Last Admin: 05/03/18 08:00 Dose: 10 mg Oxycodone HCl (Roxycodone Tab*) 10 mg PO Q4H PRN PRN Reason: SEVERE PAIN Last Admin: 05/03/18 13:45 Dose: 10 mg Oxycodone/Acetaminophen (Percocet 5/325 Tab*) 1 tab PO Q4H PRN PRN Reason: PAIN Last Admin: 05/03/18 05:40 Dose: 1 tab Oxycodone/Acetaminophen (Percocet 5/325 Tab*) 2 tab PO Q4H PRN PRN Reason: PAIN Last Admin: 05/03/18 11:39 Dose: 2 tab Pantoprazole Sodium (Protonix Tab*) 40 mg PO [facility]; Protocol Last Admin: 05/03/18 07:58 Dose: 40 mg Polyethylene Glycol/Electrolytes (Miralax*) 17 gm PO DAILY PRN PRN Reason: Constipation Propranolol HCl (Inderal La Cap*) 80 mg PO 1800 [facility] Last Admin: 05/02/18 17:40 Dose: 80 mg Tapentadol (Nucynta(Nf)) 50 mg PO TID [facility] Last Admin: 05/03/18 13:48 Dose: Not Given Tramadol HCl (Ultram*) 50 mg PO Q6H PRN PRN Reason: PAIN Last Admin: 05/02/18 19:20 Dose: 50 mg Vital Signs - 8 hr 05/03/18 05/03/18 05/03/18 07:16 07:58 09:15 Temperature 98.2 F Pulse Rate 87 Respiratory 16 18 18 Rate Blood Pressure 110/58 (mmHg) O2 Sat by Pulse 93 Oximetry 05/03/18 05/03/18 05/03/18 11:29 11:30 11:32 Temperature 98.2 F Pulse Rate 86 Respiratory 16 16 16 Rate Blood Pressure 137/72 (mmHg) O2 Sat by Pulse 94 Oximetry 05/03/18 05/03/18 05/03/18 11:39 11:44 12:31 Temperature Pulse Rate Respiratory 18 18 18 Rate Blood Pressure (mmHg) O2 Sat by Pulse Oximetry 05/03/18 05/03/18 12:32 13:45 Temperature Pulse Rate Respiratory 18 18 Rate Blood Pressure (mmHg) O2 Sat by Pulse Oximetry Oxygen Devices in Use Now: None Appearance: Comfortable, NAD Eyes: No Scleral Icterus Ears/Nose/Mouth/Throat: Clear Oropharnyx, Mucous Membranes Moist Neck: NL Appearance and Movements; NL JVP Respiratory: Symmetrical Chest Expansion and Respiratory Effort, Clear to Auscultation Cardiovascular: NL Sounds; No Murmurs; No JVD, RRR, No Edema Abdominal: NL Sounds; No Tenderness; No Distention Lymphatic: No Cervical Adenopathy Extremities: No Edema, No Clubbing, Cyanosis Skin: No Rash or Ulcers Neurological: Alert and Oriented x 3 Nutrition: Taking PO's Result Diagrams: 05/03/18 05:36 05/03/18 05:36 Additional Lab and Data: Laboratory Results - last 24 hr 05/02/18 05/03/18 05/03/18 22:11 05:36 05:36 Hgb 11.8 L Hct 35 Plt Count 180 MPV 8.5 INR (Anticoag Therapy) 1.01 Sodium Potassium Chloride Carbon Dioxide Anion Gap BUN Creatinine Est GFR ( Amer) Est GFR (Non-Af Amer) BUN/Creatinine Ratio Glucose POC Glucose (mg/dL) 313 H Calcium Magnesium 05/03/18 05/03/18 05/03/18 05:36 07:30 11:42 Hgb Hct Plt Count MPV INR (Anticoag Therapy) Sodium 137 Potassium 4.5 Chloride 102 Carbon Dioxide 28 Anion Gap 7 BUN 16 Creatinine 0.69 Est GFR ( Amer) 107.7 Est GFR (Non-Af Amer) 89.0 BUN/Creatinine Ratio 23.2 H Glucose 208 H POC Glucose (mg/dL) 184 H 268 H Calcium 9.2 Magnesium 1.6 L 05/03/18 16:53 Hgb Hct Plt Count MPV INR (Anticoag Therapy) Sodium Potassium Chloride Carbon Dioxide Anion Gap BUN Creatinine Est GFR ( Amer) Est GFR (Non-Af Amer) BUN/Creatinine Ratio Glucose POC Glucose (mg/dL) > 444 H* Calcium Magnesium Assess/Plan/Problems-Billing Assessment: - Patient Problems (1) Status post total left knee replacement Comment: - POD 1 - Management per orth (2) Diabetes Comment: - Cont reduced dose of lantus 10 units BID (home dose if 40 units BID) - Cont sliding scale - Cont holding glimepiride and Victoza - Received update from nurse mookie 1700 that bedside glucometer was reading "above range", therefore, stat glucose ordered. May need increase in lantus dosing (3) Electrolyte abnormality Comment: - Mag 1.6, therefore, replacement ordered. Will recheck tomorrow - K+ 4.5 (4) Hypertension Comment: - Currently normotensive, but did have recorded low BPs yesterday - I would recommend continuing to hold lisinopril as she is only POD 1 and had now BPs yesterday - Reassess restarting tomorrow - Monitor BP routinely (5) GERD (gastroesophageal reflux disease) Comment: - Cont Protonix (6) Anxiety Comment: - Cont Cymbalta and Xanax as needed (7) DVT prophylaxis Comment: - Eliquis per ortho (8) Full code status Comment: - Full Code Status and Disposition: Thank you for allowing us to assist in this patient's care. We will following along with you during her hospital stay. Attending: Ramila Cook
[2018-05-03] MEDS ORDERED: Magnesium Sulfate 2 GM IV* 2 GM/50 ML BAG IVPB ONE (14:09)
--- NOTE | 2018-05-03 14:10 | PN ---
Progress Note - Progress Note Date of Service: 05/03/18 SOAP: Subjective: []Pt seen and examined at bedside. She denie CP, SOB, dizziness or nausea. She has 10/10 left knee pain. Objective: []General: NAD though expressing a great amount of left knee pain LLE: Left knee dressing CDI, cryo cuff in use, thigh is soft, DF/PF intact. Dp2+ , sensation intact to light touch distally Calves supple and nontender without erythema, edema or palpable cords Assessment: []Left total knee arthroplasty POD 1 Plan: []WBAT PT/OT eliquis 2.5 mg po BID Cyclobenzaprine and Long acting morphine 15mg Q 12 added. Hold sohrt acting narcotics for sedation. Morphine adverse reaction is nausea. She has a scop patch and zofran ordered Vital Signs Temp 98.2 F 05/03/18 11:32 Pulse 86 05/03/18 11:32 Resp 18 05/03/18 13:45 BP 137/72 05/03/18 11:32 Pulse Ox 94 05/03/18 11:32 Intake & Output 05/02/18 05/03/18 05/03/18 18:59 06:59 18:59 Intake Total 1600 1845 788 Output Total 450 1750 200 Balance 1150 95 588 Weight 203 lb Intake: IV Fluids 1550 1045 734 ABX - CLINDAMYCIN 55 CLINDAMYCIN 900MG 50ML 50 LR 990 734 lr 1500 IVPB 54 ABX - CLINDAMYCIN 54 Oral 50 800 Output: Urine 200 Cornelius 200 1750 Estimated Blood Loss 250 Laboratory Last Values Hgb 11.8 g/dl (12.0-16.0) L 05/03/18 05:36 Hct 35 % (35-47) 05/03/18 05:36 Plt Count 180 10^3/ul (150-450) 05/03/18 05:36 MPV 8.5 fL (7.4-10.4) 05/03/18 05:36 INR (Anticoag Therapy) 1.01 (0.77-1.02) 05/03/18 05:36 Sodium 137 mmol/L (135-145) 05/03/18 05:36 Potassium 4.5 mmol/L (3.5-5.0) 05/03/18 05:36 Chloride 102 mmol/L (101-111) 05/03/18 05:36 Carbon Dioxide 28 mmol/L (22-32) 05/03/18 05:36 Anion Gap 7 mmol/L (2-11) 05/03/18 05:36 BUN 16 mg/dL (6-24) 05/03/18 05:36 Creatinine 0.69 mg/dL (0.51-0.95) 05/03/18 05:36 Est GFR ( Amer) 107.7 (>60) 05/03/18 05:36 Est GFR (Non-Af Amer) 89.0 (>60) 05/03/18 05:36 BUN/Creatinine Ratio 23.2 (8-20) H 05/03/18 05:36 Glucose 208 mg/dL (70-100) H 05/03/18 05:36 POC Glucose (mg/dL) 268 mg/dL (70-100) H 05/03/18 11:42 Calcium 9.2 mg/dL (8.6-10.3) 05/03/18 05:36 Magnesium 1.6 mg/dL (1.9-2.7) L 05/03/18 05:36 Hepatitis B Antibody Immune (Immune) 05/02/18 12:02 Hep Bs Antigen Nonreactive (Nonreactive) 05/02/18 12:02 Hep Bs Antibody, Quant 13.93 mIU/mL (>12) 05/02/18 12:02 Hepatitis C Antibody Nonreactive (Nonreactive) 05/02/18 12:02 Hepatitis C Ab Index < 0.0 Index 05/02/18 12:02 HIV 1&2 Antibody Rapid Nonreactive (Nonreactive) 05/02/18 12:02
[2018-05-03] MEDS: Propranolol LA CAP* 80 MG PO SCH (18:20)
[2018-05-03] MEDS: Atorvastatin* 10 MG TAB PO SCH (18:20)
[2018-05-04] MEDS: Cyclobenzaprine TAB* 10 MG PO PRN (00:03)
[2018-05-04] MEDS: oxyCODONE/Acetamin 5/325 MG* TAB PO PRN ×4 (00:45→17:20)
[2018-05-04] MEDS: Acetaminophen TAB* 325 MG PO SCH ×3 (02:31→17:14)
[2018-05-04] MEDS: oxyCODONE TAB* 5 MG TAB PO PRN (03:34)
[2018-05-04 05:52] LABS: Hematocrit 36 % (35-47); Hemoglobin 12.4 g/dl (12.0-16.0); Mean Platelet Volume 8.3 fL (7.4-10.4); Platelet Count 198 10^3/ul (150-450)
[2018-05-04 06:09] LABS: BUN/Creatinine Ratio 17.6 (8-20); Calcium 9.3 mg/dL (8.6-10.3); EGFR African American 109.5 (>60); EGFR Non-African American 90.5 (>60); Magnesium 2.1 mg/dL (1.9-2.7); Potassium 4.4 mmol/L (3.5-5.0)
[2018-05-04 06:16] LABS: INR 1.16 (0.77-1.02)
--- NOTE | 2018-05-04 07:35 | PN ---
Progress Note - Progress Note Date of Service: 05/04/18 SOAP: Subjective: Pt. is alert, reports pain is severe. Objective: Vital Signs: Temp Pulse Resp BP Pulse Ox 98.6 F 94 16 130/73 97 05/04/18 03:34 05/04/18 03:34 05/04/18 05:47 05/04/18 03:34 05/04/18 03:34 Laboratory Results - last 24 hr 05/03/18 05/03/18 05/03/18 05:36 07:30 11:42 Hgb Hct Plt Count MPV INR (Anticoag Therapy) Sodium 137 Potassium 4.5 Chloride 102 Carbon Dioxide 28 Anion Gap 7 BUN 16 Creatinine 0.69 Est GFR ( Amer) 107.7 Est GFR (Non-Af Amer) 89.0 BUN/Creatinine Ratio 23.2 H Glucose 208 H POC Glucose (mg/dL) 184 H 268 H Calcium 9.2 Magnesium 1.6 L 05/03/18 05/03/18 05/04/18 16:53 17:45 05:36 Hgb 12.4 Hct 36 Plt Count 198 MPV 8.3 INR (Anticoag Therapy) Sodium Potassium Chloride Carbon Dioxide Anion Gap BUN Creatinine Est GFR ( Amer) Est GFR (Non-Af Amer) BUN/Creatinine Ratio Glucose 353 H POC Glucose (mg/dL) > 444 H* Calcium Magnesium 05/04/18 05/04/18 05:36 05:36 Hgb Hct Plt Count MPV INR (Anticoag Therapy) 1.16 H Sodium 137 Potassium 4.4 Chloride 97 L Carbon Dioxide 34 H Anion Gap 6 BUN 12 Creatinine 0.68 Est GFR ( Amer) 109.5 Est GFR (Non-Af Amer) 90.5 BUN/Creatinine Ratio 17.6 Glucose 227 H POC Glucose (mg/dL) Calcium 9.3 Magnesium 2.1 LLE - dressing changed, inc c/d/i. distally nvi. Assessment: 52 yo F pod 2 s/p LTKA Plan: wbat pt/ot wean off O2 plan d/c to home with vns today
[2018-05-04] MEDS: Apixaban* 2.5 MG TAB PO SCH (09:00)
[2018-05-04] MEDS: Cetirizine* 10 MG TAB PO SCH (09:00)
[2018-05-04] MEDS: Morphine TAB Extended Release (*) 15 MG TAB.ER PO SCH (09:00)
[2018-05-04] MEDS: Metoprolol Succinate XL TAB* 100 MG PO SCH (09:00)
[2018-05-04] MEDS: DULoxetine DR CAP* 60 MG CAP.DR PO SCH (09:01)
[2018-05-04] MEDS: TAPENTADOL 50 MG PO SCH ×2 (09:01→14:35)
[2018-05-04] MEDS: Docusate CAP* 100 MG PO SCH (09:01)
[2018-05-04] MEDS: Oxybutynin XL TAB* 5 MG PO SCH (09:02)
[2018-05-04] MEDS: Pantoprazole TAB * 40 MG TAB PO SCH (09:02)
[2018-05-04] MEDS: Insulin GLARGINE(*) 1 UNITS UNIT SUBCUT SCH (09:04)
[2018-05-04] MEDS: Insulin LISPRO* 1 UNITS UNIT SUBCUT SCH ×3 (09:06→17:39)
[2018-05-04] MEDS: Magnesium Hydroxide LIQ* 30 ML UDC PO SCH (09:09)
--- NOTE | 2018-05-04 14:16 | DS ---
AMENDED REPORT NOW INCLUDES DESIGNATED COSIGNER DISCHARGE SUMMARY: DATE OF ADMISSION: 05/02/18 DATE OF DISCHARGE: 05/04/18 ATTENDING PHYSICIAN: Dr. Francisca Russell.* (YAJAIRA CINTRON) ADMISSION DIAGNOSIS: Severe end-stage degenerative osteoarthritis, left knee joint. DISCHARGE DIAGNOSIS: Severe end-stage degenerative osteoarthritis, left knee joint. SURGERY PERFORMED: Left total knee arthroplasty. HOSPITAL COURSE: The patient is a 52-year-old female with increasingly severe left knee pain. She failed conservative management with anti-inflammatories, pain medication, intraarticular corticosteroid injections, arthroscopy, and physical therapy. Due to continued pain and decreased quality of life, she elected to proceed with left total knee arthroplasty. She was taken to the operating room under the care of Dr. Francisca Russell on the date of 05/02/18. She tolerated the procedure well and left the operating room in stable condition. Postoperatively, she had some difficulty with pain management. Postoperative day #1, MS Contin 15 mg q.12 hours scheduled dosing with the Percocet 5/325 every 4 hours did help manage her pain more adequately. She mastered her physical therapy and occupational therapy goals, bearing weight as tolerated on the left lower extremity. She felt that she would be able to go home the afternoon of 05/04/18. CONDITION ON DISCHARGE: Temperature 98.5, pulse 93, respiratory rate 18, O2 sat is 100% on room air, blood pressure 122/68. Her left knee incision is benign. No drainage or erythema. Her calf is nontender and soft. She has active dorsiflexion of her left ankle with full sensation distally. PLAN: Discharge to home. She will continue with physical therapy. She will have visiting nursing services in place. She is provided with a prescription of Eliquis 2.5 mg p.o. b.i.d. and MS Contin 15 mg p.o. q.12 hours p.r.n. severe pain, as well as Percocet 5/325 one p.o. q.4 hours p.r.n. pain, #42. Her prescriptions were sent to her pharmacy for pickup. We recommend a followup as scheduled in 10 to 14 days in the office with Dr. Russell. All questions were answered. YAJAIRA CINTRON [id number]/[facility] #: [id number] [facility]ALSergio
[2018-05-04 16:22] VITALS: BP 124/66
[2018-05-04] MEDS: Propranolol LA CAP* 80 MG PO SCH (17:20)
[2018-05-04] MEDS: Atorvastatin* 10 MG TAB PO SCH (17:20)
--- NOTE | 2018-05-04 17:46 | PN ---
Subjective Date of Service: 05/04/18 Interval History: Sitting in chair on assessment. Reports she feels ready for discharge. Has been weaned from supplemental oxygen successfully as she is now 93% on room air. Objective Active Medications: Acetaminophen (Tylenol Tab*) 975 mg PO 0300,1100,1900 [facility] Last Admin: 05/04/18 17:14 Dose: Not Given Albuterol (Ventolin Hfa Inhaler*) 2 puff INH Q6H PRN PRN Reason: SHORTNESS OF BREATH Alprazolam (Xanax Tab*) 0.25 mg PO TID PRN PRN Reason: ANXIETY Apixaban (Eliquis*) 2.5 mg PO BID [facility] Last Admin: 05/04/18 09:00 Dose: 2.5 mg Atorvastatin Calcium (Lipitor*) 10 mg PO QPM [facility] Last Admin: 05/04/18 17:20 Dose: 10 mg Bisacodyl (Dulcolax Supp*) 10 mg MD DAILY PRN PRN Reason: constipation Cetirizine HCl (Zyrtec*) 10 mg PO QAM [facility] Last Admin: 05/04/18 09:00 Dose: 10 mg Cyclobenzaprine HCl (Flexeril Tab*) 10 mg PO TID PRN PRN Reason: SPASMS Last Admin: 05/04/18 00:03 Dose: 10 mg Dextrose (D50w Syringe 50 Ml*) 12.5 gm IV PUSH .FOR FS < 60 - SS PRN PRN Reason: FS < 60 Diphenhydramine HCl (Benadryl Iv*) 12.5 mg IV Q6H PRN PRN Reason: PRURITIS Docusate Sodium (Colace Cap*) 100 mg PO BID [facility] Last Admin: 05/04/18 09:01 Dose: 100 mg Duloxetine HCl (Cymbalta Cap*) 60 mg PO QAM [facility] Last Admin: 05/04/18 09:01 Dose: 60 mg Hydromorphone HCl (Dilaudid Inj1s*) 0.5 mg IV SLOW PU Q4H PRN PRN Reason: PAIN Last Admin: 05/03/18 09:15 Dose: 0.5 mg Insulin Glargine (Lantus(*)) 10 units SUBCUT BID [facility] Last Admin: 05/04/18 09:04 Dose: 10 units Insulin Human Lispro (Humalog*) 0 units SUBCUT [facility]; Protocol Last Admin: 05/04/18 17:39 Dose: 10 units Lactulose (Lactulose*) 30 ml PO Q6H PRN PRN Reason: constipation Last Admin: 05/04/18 09:01 Dose: 30 ml Magnesium Hydroxide (Milk Of Magnesia Liq*) 30 ml PO BID [facility] Last Admin: 05/04/18 09:09 Dose: Not Given Magnesium Hydroxide (Milk Of Magnesia Liq*) 30 ml PO Q6H PRN PRN Reason: constipation Metoprolol Succinate ([facility] Xl Tab*) [facility] Last Admin: 05/04/18 09:00 Dose: 100 mg Morphine Sulfate (Ms Contin(*)) 15 mg PO Q12HR [facility] Last Admin: 05/04/18 09:00 Dose: 15 mg Ondansetron HCl (Zofran Inj*) 4 mg IV Q6H PRN PRN Reason: nausea Last Admin: 05/03/18 12:32 Dose: 4 mg Ondansetron HCl (Zofran Tab*) 4 mg PO Q6H PRN PRN Reason: NAUSEA Oxybutynin Chloride (Ditropan Xl Tab*) 10 mg PO [facility]; Protocol Last Admin: 05/04/18 09:02 Dose: 10 mg Oxycodone HCl (Roxycodone Tab*) 10 mg PO Q4H PRN PRN Reason: SEVERE PAIN Last Admin: 05/04/18 03:34 Dose: 10 mg Oxycodone/Acetaminophen (Percocet 5/325 Tab*) 1 tab PO Q4H PRN PRN Reason: PAIN Last Admin: 05/04/18 17:20 Dose: 1 tab Oxycodone/Acetaminophen (Percocet 5/325 Tab*) 2 tab PO Q4H PRN PRN Reason: PAIN Last Admin: 05/04/18 12:46 Dose: 2 tab Pantoprazole Sodium (Protonix Tab*) [facility]; Protocol Last Admin: 05/04/18 09:02 Dose: 40 mg Polyethylene Glycol/Electrolytes (Miralax*) 17 gm PO DAILY PRN PRN Reason: Constipation Propranolol HCl (Inderal La Cap*) 80 mg PO 1800 [facility] Last Admin: 05/04/18 17:20 Dose: 80 mg Tapentadol (Nucynta(Nf)) 50 mg PO TID [facility] Last Admin: 05/04/18 14:35 Dose: 50 mg Tramadol HCl (Ultram*) 50 mg PO Q6H PRN PRN Reason: PAIN Last Admin: 05/02/18 19:20 Dose: 50 mg Vital Signs - 8 hr 05/04/18 05/04/18 05/04/18 11:25 11:46 12:46 Temperature 98.5 F Pulse Rate 92 Respiratory 16 16 16 Rate Blood Pressure 133/67 (mmHg) O2 Sat by Pulse 93 Oximetry 05/04/18 05/04/18 05/04/18 14:35 16:18 16:24 Temperature 98.5 F Pulse Rate 94 Respiratory 16 16 16 Rate Blood Pressure 124/66 (mmHg) O2 Sat by Pulse 94 Oximetry 05/04/18 17:20 Temperature Pulse Rate Respiratory 16 Rate Blood Pressure (mmHg) O2 Sat by Pulse Oximetry Oxygen Devices in Use Now: None Appearance: Comfortable, NAD Eyes: No Scleral Icterus Ears/Nose/Mouth/Throat: Clear Oropharnyx, Mucous Membranes Moist Neck: NL Appearance and Movements; NL JVP Respiratory: Symmetrical Chest Expansion and Respiratory Effort, Clear to Auscultation Cardiovascular: NL Sounds; No Murmurs; No JVD, RRR, No Edema Abdominal: NL Sounds; No Tenderness; No Distention Lymphatic: No Cervical Adenopathy Extremities: No Edema, No Clubbing, Cyanosis Skin: No Rash or Ulcers Neurological: Alert and Oriented x 3 Nutrition: Taking PO's Result Diagrams: 05/04/18 05:36 05/04/18 05:36 Additional Lab and Data: Laboratory Results - last 24 hr 05/03/18 05/03/18 05/04/18 17:45 21:15 05:36 Hgb 12.4 Hct 36 Plt Count 198 MPV 8.3 INR (Anticoag Therapy) Sodium Potassium Chloride Carbon Dioxide Anion Gap BUN Creatinine Est GFR ( Amer) Est GFR (Non-Af Amer) BUN/Creatinine Ratio Glucose 353 H POC Glucose (mg/dL) 299 H Calcium Magnesium 05/04/18 05/04/18 05/04/18 05:36 05:36 11:59 Hgb Hct Plt Count MPV INR (Anticoag Therapy) 1.16 H Sodium 137 Potassium 4.4 Chloride 97 L Carbon Dioxide 34 H Anion Gap 6 BUN 12 Creatinine 0.68 Est GFR ( Amer) 109.5 Est GFR (Non-Af Amer) 90.5 BUN/Creatinine Ratio 17.6 Glucose 227 H POC Glucose (mg/dL) 331 H Calcium 9.3 Magnesium 2.1 05/04/18 17:23 Hgb Hct Plt Count MPV INR (Anticoag Therapy) Sodium Potassium Chloride Carbon Dioxide Anion Gap BUN Creatinine Est GFR ( Amer) Est GFR (Non-Af Amer) BUN/Creatinine Ratio Glucose POC Glucose (mg/dL) 404 H* Calcium Magnesium Assess/Plan/Problems-Billing Assessment: - Patient Problems (1) Status post total left knee replacement Comment: - POD 2 - Management per orth (2) Diabetes Comment: - May resume home medications at discharge (3) Electrolyte abnormality Comment: - Mag 2.1 - K+ 4.5 (4) Hypertension Comment: - Currently normotensive - Resume home medications at discharge (5) GERD (gastroesophageal reflux disease) Comment: - Cont Protonix (6) Anxiety Comment: - Cont Cymbalta and Xanax as needed (7) DVT prophylaxis Comment: - Eliquis per ortho (8) Full code status Comment: - Full Code Status and Disposition: Thank you for allowing us to assist in this patient's care. Attending: Ramila Cook
== END 2018-05-04 18:00 | disposition home health service (06) | DRG 302 ==
LOC: AA 05-02 05:47 → MEDTELE 05-02 10:14 → SSU 05-02 13:07
PROVIDERS: ADMIT Orthopaedic Surgery Adult Reconstructive Orthopaedic Surgery; ATTEND Orthopaedic Surgery Adult Reconstructive Orthopaedic Surgery
PROC: 0SRD069 Replacement of Left Knee Joint with Oxidized Zirconium on Polyethylene Synthetic Substitute, Cemented, Open Approach (ICD-10-PCS; principal; 2018-05-02 07:30)
DX: M17.12 Unilateral primary osteoarthritis, left knee (principal); I42.8 Other cardiomyopathies; Z79.01 Long term (current) use of anticoagulants; E11.9 Type 2 diabetes mellitus without complications; F32.9 Major depressive disorder, single episode, unspecified; F41.9 Anxiety disorder, unspecified; I50.9 Heart failure, unspecified; I11.0 Hypertensive heart disease with heart failure; J45.909 Unspecified asthma, uncomplicated; K21.9 Gastro-esophageal reflux disease without esophagitis; E78.00 Pure hypercholesterolemia, unspecified; E06.3 Autoimmune thyroiditis; M25.462 Effusion, left knee; E66.9 Obesity, unspecified; M41.9 Scoliosis, unspecified; N39.3 Stress incontinence (female) (male); K58.0 Irritable bowel syndrome with diarrhea; M25.762 Osteophyte, left knee; M85.80 Other specified disorders of bone density and structure, unspecified site; E87.8 Other disorders of electrolyte and fluid balance, not elsewhere classified; Z98.51 Tubal ligation status; Z90.710 Acquired absence of both cervix and uterus; Z88.8 Allergy status to other drugs, medicaments and biological substances; Z88.5 Allergy status to narcotic agent; Z83.3 Family history of diabetes mellitus; Z82.49 Family history of ischemic heart disease and other diseases of the circulatory system; Z68.35 Body mass index [BMI] 35.0-35.9, adult; Z80.42 Family history of malignant neoplasm of prostate; Z82.3 Family history of stroke; Z84.1 Family history of disorders of kidney and ureter
CPT/HCPCS: 36415; 80048; 82947; 83735; 85014; 85018; 85049; 85610; 86703; 86706; 86803; 87340; 88305; 88311; A9270-GY; C1776; J0360; J1100; J1170; J1885; J2250; J2405; J2704; J2710; J2765; J2795; J3010; J3475

== ENCOUNTER → 2019-01-23 08:11 | Day surgery (SDC) | payer OTHER ==
[~2019-01-23 08:11] MED LIST changes: +Acetaminophen IV 1GM/100ML * 1,000 MG/100 ML VIAL IVPB ONE; +Acetaminophen IV 1GM/100ML * 100 ML ONE; -Buffered Lidocaine 0.9% SYRIN* 5 ML/SYR SYRINGE INTRADERM ONE; +Buffered Lidocaine 1% SYRIN* 1 ML/SYRINGE INTRADERM ONE; +Bupivacaine 0.25% SDV PF* 10 ML VIAL INJ ONE; +DiMENhydriNATE IV* 50 MG/ML VIAL IV PUSH PRN; +HYDROmorphone INJ1* 1 MG/ML SYRINGE ONE; +KETAMINE HCL* 50 MG/ML 10 ML VIAL ONE; +Lactated Ringers 1000 ML Bag* 1,000 ML IV SCH; +Levalbuterol 0.63MG/3ML NEB* UNIT OF USE INH ONE; +Metoclopramide IV* 5 MG/ML 2 ML VIAL ONE; +Midazolam* 1 MG/ML 2 ML VIAL (2 MG) ONE; +Naloxone* 0.4 MG/ML 1 ML VIAL IV PRN; +Ondansetron INJ* 2 MG/ML VIAL ONE; +PROCHLORPERAZINE INJ 5 MG/ML 2 ML VIAL IV PRN; +Phenylephrine 40 MCG/ML SYRINGE ONE; +Propofol* 10 MG/ML 20 ML BTL ONE; +Rocuronium* 10 MG/ML VIAL ONE; +Ropivacaine 0.2% * 2 MG/ML VIAL ONE; +Succinylcholine* 20 MG/ML 10 ML VIAL ONE; +ceFAZolin 2 GM PREMIX in ORs 2 GM/50 ML BAG ONE; +fentaNYL* 50 MCG/ML 2 ML VIAL (100 MCG VIAL) IV PRN; +fentaNYL* 50 MCG/ML 2 ML VIAL (100 MCG VIAL) ONE; +oxyCODONE/Acetamin 5/325 MG* TAB ONE
[2019-01-23] MEDS: HYDROmorphone INJ1* 1 MG/ML SYRINGE IV PRN ×2 (13:18→13:31)
[2019-01-23 13:51] VITALS: BP 135/82
[2019-01-23] MEDS: oxyCODONE/Acetamin 5/325 MG* TAB PO PRN ×2 (14:27→15:30)
--- NOTE | 2019-01-23 23:33 | OP ---
CC: PCP * DATE OF OPERATION: 01/23/19 - [facility] DATE OF : 63 SURGEON: Shruthi Martines MD LEAD REFINER: YAJAIRA Araya. An volleyball assistant coach was needed for the entirety of the case to help with positioning, retraction, and was utilized throughout all portions of the case. ANESTHESIOLOGIST: Dr. Garcia. ANESTHESIA: General. PRE-OP DIAGNOSIS: Right type 5 acromioclavicular separation, chronic. POST-OP DIAGNOSIS: Right type 5 acromioclavicular separation, chronic. OPERATIVE PROCEDURE: Right shoulder open distal clavicle excision and right shoulder CC ligament reconstruction with allograft in a Mazzocca technique. COMPLICATIONS: None. ESTIMATED BLOOD LOSS: 50 cc. IMPLANTS USED: Two Arthrex PEEK 5.5 mm x 10 mm screws. INDICATIONS: Camryn Marti is a 53-year-old female who sustained a work- related injury several years ago. She had a type 5 AC separation. She also had severe knee pain and knee arthritis, which underwent a previous surgery and therefore she is now stabilized and able to proceed with surgery for her shoulder. After extensive discussion and failure of conservative management, she has elected to proceed with surgical treatment. Risks included, but are not limited to bleeding; infection; damage to nerves, vessels, surrounding structures; wound nonhealing; persistent pain; need for surgery; scarring; stiffness; incomplete relief of symptoms; risks of anesthesia; failure of the graft; loss of reduction; fracture; and risk of DVT. The patient does have history of diabetes and her A1c was normalized to be less than 8 prior to surgery and she underwent preoperative medical risk optimization prior to surgery. DESCRIPTION OF PROCEDURE: The patient was greeted in the preoperative area by the attending surgeon. Correct extremity was marked and consent was confirmed. The patient was brought back to the operating suite where she was placed in supine position on the operating table. She then underwent general anesthesia and endotracheal intubation, after which she was appropriately positioned in the lazy beach-chair position. X-ray was confirmed through the bed. Once the appropriate positioning was done, the right shoulder was then prepped and draped in the usual sterile fashion beginning with chlorhexidine soap, scrub, and alcohol wipe, and a final prep with ChloraPrep. After appropriate surgical pause indicating side, site, procedure, and administration of antibiotics, a saber incision was then made using 15-blade over the AC joint and the coracoid. The soft tissues were carefully dissected to expose the fascia, which had been previously disrupted. The AC joint was identified and then a deep incision was made over the clavicle with care to try to protect and identify the flaps between the trapezium and the pec. The lateral edges of the clavicle were then exposed carefully as well. Dissection was taken medially along the bone. The muscle layers were then tagged with nonabsorbable suture for later closure. Once the clavicle was exposed, both ends were exposed and they were found to be free, the provisional starting positions were identified. First, the medial conoid was then made about 4.5 cm from the end of the clavicle and then 3.5 cm the trapezoid ligament was marked and the provisional 1 cm distal clavicle excision was also marked. Dissection was then taken towards the coracoid, again very carefully with hemostasis maintained. The dissection was taken to bone with care not to destroy medially or laterally or plunge and the coracoid was exposed at the superior aspect. Both edges of the coracoid were then carefully exposed with blunt retractors to expose the entire coracoid. Once this was identified, the Arthrex coracoid passer was then used to pass a nitinol looped wire around the coracoid. Once this was confirmed, a stay suture was then passed to later pass the graft as well as a FiberTape. Attention was directed to the distal clavicle excision. Distal clavicle excision was then done using a sagittal saw. The distal 1 cm was removed and then a small area of the posterior aspect of the clavicle was also removed to prevent any posterior irritation. Meanwhile, on the back table, the hamstring allograft was then thawed out. It was then whipstitched on each end. It was found to about 5 mm in diameter. Once the tendon was prepared, the tunnels were then first drilled with guidewires. This was also done with careful protection with a Britton underneath the clavicle to prevent any plunging. Once both guidewires were placed for the trapezoid and the conoid ligament, the size 6 mm cannulated drill was then used to drill the tunnels. The bone quality was actually pretty good. After this was done, stay sutures were then passed through the tunnels. At this point, once all the tunnels had been made and stay sutures had been placed, the graft was then brought to the field. The graft as well as the FiberTape were then passed around the coracoid. The graft was then crisscrossed, but the FiberTape was kept in a simple looped fashion to prevent any damage to the coracoid. Then, each limb of the FiberTape in the hamstring was then passed through first the conoid tunnel and then trapezoid tunnel. The medial aspect of the clavicle was secured first with a 5.5 mm x 10 mm PEEK screw with tension on the sutures to prevent any twisting of the graft. After this was done, with superior directed force of the elbow and pointing the clavicle inferiorly and tension on the hamstring, the second 5.5 mm screw was secured on the lateral tunnel. Prior to the reduction, an x- ray was taken with a provisional reducing maneuver and was found to be adequate. After the graft was secured, x-ray was obtained again and was found to be the same. Then, again with downward force in the clavicle and superior force in the elbow, the FiberTape was then tied. After this was done, the x- ray was obtained again and a final image was obtained, which was found to be acceptable. The strands from the previously passed tape were then passed through the extra limbs of the graft and then tied down. Then, the 2 limbs of the graft were tied together with #2 FiberWire. The graft was then brought over and secured to the AC and the capsule. This was an added fixation. After this was done, the wounds were copiously irrigated with sterile saline. The fascial layers were then closed with care to secure the trapezium and the pec fascia over the clavicle. This was done with FiberWire and #5 Ethibond in interrupted fashion. This allowed for good seal and repairing of her fascial defect. The wounds were irrigated again. The skin was then closed in layers with 3-0 Monocryl for subcutaneous closure and 3-0 nylon in a running fashion. The wound was then injected with 0.2% ropivacaine. Sterile dressings were applied. A sling was applied as well as a Cryo/Cuff. She was awoken from anesthesia and transferred to the PACU in stable condition. POSTOPERATIVE PLAN: She will be nonweightbearing. She will be discharged on antibiotics and pain medication. DVT prophylaxis was considered, but deferred due to no previous personal or family history. I will see her back in about 2 weeks with x-rays. She will have no range of motion of the shoulder and stay in a sling for 6 weeks. [id number]/[facility] #: [id number] DAREK
== END | disposition home or self-care (01) ==
LOC: OR 08:11
PROVIDERS: ATTEND Orthopaedic Surgery
DX: S43.51XD Sprain of right acromioclavicular joint, subsequent encounter (principal); X58.XXXD Exposure to other specified factors, subsequent encounter; Y92.9 Unspecified place or not applicable; E11.9 Type 2 diabetes mellitus without complications; Z79.4 Long term (current) use of insulin; I10 Essential (primary) hypertension; I42.9 Cardiomyopathy, unspecified; J45.909 Unspecified asthma, uncomplicated; E06.3 Autoimmune thyroiditis; F41.8 Other specified anxiety disorders; M19.90 Unspecified osteoarthritis, unspecified site
CPT/HCPCS: 76000; A9270-GY; C1713; J0330; J0690; J1170; J2250; J2405; J2704; J2765; J2795; J3010; J3490; L8699